=== PATIENT | male | born 1970 | race African-American/Black ===

== ENCOUNTER → 2016-10-08 | Outpatient (CLI) | payer BC ==
[2016-10-08 15:03] LABS: BASO % 0.4 %; BASO ABS # 0.03 K/uL (0-0.2); COMPLETE YES; EOS % 1.5 %; HEMATOCRIT 42.2 % (42-52); IG% 0.3 %; LYMPH % 31.8 %; LYMPH ABS # 2.54 K/uL (1.2-3.4); MEAN CELL VOLUME 90.2 fL (80-100); MEAN CORPUSCULAR HEMOGLOBIN 30.8 pg (25-34); MEAN CORPUSCULAR HGB CONC 34.1 g/dl (32-36); MEAN PLATELET VOLUME 10.4 fL (7.4-10.4); MONO % 8.3 %; NEUT % 57.7 %; PLATELET COUNT 277 K/uL (130-400); RED BLOOD COUNT 4.68 M/uL (4.7-6.1); WHITE BLOOD COUNT 7.98 K/uL (4.8-10.8)
--- NOTE | 2016-10-08 15:08 | DIAGNOSTIC IMAGING REPORT ---
RIGHT HIP UNILATERAL 2 VIEWS CLINICAL HISTORY: Right hip pain. COMPARISON: None FINDINGS: Alignment of the right hip is anatomic. There is no fracture or suspicious lesion. There is mild joint space narrowing and osteophytosis of the right hip. There is no fracture or osseous lesion. Pelvic calcifications reflect phleboliths. There is no radiographic evidence of avascular necrosis. IMPRESSION: 1. Mild osteoarthrosis of the right hip. 2. No acute fracture. Electronically signed by: Giuliano Daniels M.D. 10/08/2016 3:07 PM Dictated Date/Time: 10/08/2016 2:49 PM
[2016-10-08 15:51] LABS: ALT/SGPT 36 U/L (12-78); AST/SGOT 22 U/L (15-37); BLOOD UREA NITROGEN 6 mg/dl (7-18); BUN/CREATININE RATIO 4.8 (10-20); CALCIUM 9.1 mg/dl (8.5-10.1); CARBON DIOXIDE 29 mmol/L (21-32); CHLORIDE 105 mmol/L (98-107); CHOLESTEROL 224 mg/dl (0-200); GLUCOSE 85 mg/dl (70-99); POTASSIUM 3.8 mmol/L (3.5-5.1); SODIUM 142 mmol/L (136-145); TRIGLYCERIDES 131 mg/dl (0-150); VERY LOW DENSITY LIPOPROT CALC 26 mg/dl
[2016-10-08 15:54] LABS: ALB/GLOB RATIO 0.8 (0.9-2); ALKALINE PHOSPHATASE 65 U/L (45-117); CHOLESTEROL/HDL RATIO 6.2; HDL CHOLESTEROL 36 mg/dl
[2016-10-09 08:25] LABS: ESTIMATED AVERAGE GLUCOSE 131 mg/dl; HA1C FLAG Normal (Normal)
== END | disposition home or self-care (01) ==
LOC: C.RAD 14:05
PROVIDERS: ATTEND Internal Medicine
DX: E78.5 Hyperlipidemia, unspecified (principal); E66.01 Morbid (severe) obesity due to excess calories; M16.11 Unilateral primary osteoarthritis, right hip

== ENCOUNTER → 2017-03-30 | Outpatient (CLI) | payer BC ==
[2017-03-30 17:30] LABS: HEMATOCRIT 42.4 % (42-52); HEMOGLOBIN 14.6 g/dL (14.0-18.0); MEAN CORPUSCULAR HEMOGLOBIN 31.3 pg (25-34); MEAN CORPUSCULAR HGB CONC 34.4 g/dl (32-36); MEAN PLATELET VOLUME 10.7 fL (7.4-10.4); PLATELET COUNT 284 K/uL (130-400); RED CELL DISTRIBUTION WIDTH CV 13.4 % (11.5-14.5); WHITE BLOOD COUNT 8.72 K/uL (4.8-10.8)
[2017-03-30 17:45] LABS: BLOOD UREA NITROGEN 10 mg/dl (7-18); CALCIUM 9.5 mg/dl (8.5-10.1); CARBON DIOXIDE 29 mmol/L (21-32); CREATININE 1.13 mg/dl (0.60-1.40); GLUCOSE 81 mg/dl (70-99); SODIUM 138 mmol/L (136-145)
== END | disposition home or self-care (01) ==
LOC: C.CPL 16:11
PROVIDERS: ATTEND Physician Assistant
DX: Z01.810 Encounter for preprocedural cardiovascular examination (principal); Z01.812 Encounter for preprocedural laboratory examination; S43.431A Superior glenoid labrum lesion of right shoulder, initial encounter; X58.XXXA Exposure to other specified factors, initial encounter

== ENCOUNTER → 2017-04-01 | Outpatient (CLI) | payer BC ==
[~2017-04-01] MED LIST: PERFLUTREN LIPID MICROSPHERE (DEFINITY) IV ONE
--- NOTE | 2017-04-01 11:13 | EXERCISE STRESS ECHO ---
*NOTICE TO RECEIVING LIBERTARIAN AGENCY This information is strictly Confidential and protected under [place] law. [place] law prohibits you from making any further disclosure of this information unless further disclosure is expressly permitted by the written consent of the person to whom it pertains or is authorized by law. A general authorization for the release of medical or other information is not sufficient for this purpose. Hospital accepts no responsibility if the information is made available to any other person, INCLUDING THE PATIENT. Interpretation Summary * Name: SHAYY OWEN SR Study Date: 04/01/2017 08:49 AM BP: 135/90 mmHg * Patient Location: [facility] HR: 57 * : 1970 (M/d/yyyy) Gender: Male Height: 69 in * Age: 47 yrs Ethnicity: AA Weight: 310 lb * Ordering Physician: Evelio Medrano * Referring Physician: Evelio Medrano * Performed By: Sabrina Lan RDCS * * Reason For Study: ABNORMAL EKG, PRE OP * BSA: 2.5 m2 * -- Conclusions -- * There is mild concentric left ventricular hypertrophy. * Left ventricular systolic function is normal. * Normal exercise echocardiogram without evidence of inducible ischemia Procedure Details * ECHOEX, CPT #03366 * A contrast injection of Definity was performed to improve assessment of LV function. * Contrast was injected into an intravenous site in the right arm. * One vial of Definity ultrasound contrast was diluted in normal saline to a total volume of 10 ml. A total of '2' ml of solution was administered during imaging. * Lot # [id number] of Definity utilized for procedure. * Expiration date APR 02. * The attending nurse who injected the contrast agent was VANIA COTTRELL RN. Left Ventricular Findings with Stress * Normal exercise echocardiogram without evidence of inducible ischemia Left Ventricle * The left ventricle is normal in size. * There is mild concentric left ventricular hypertrophy. * Ejection Fraction = 60-65%. * Left ventricular systolic function is normal. * The left ventricular wall motion is normal at rest. Right Ventricle * The right ventricle is grossly normal size. * The right ventricular systolic function is normal as assessed by tricuspid annular plane systolic excursion (TAPSE) (normal >1.5 cm). Atria * The left atrial size is normal. * Right atrial size is normal. Mitral Valve * The mitral valve is grossly normal. * Significant mitral regurgitation is absent. Tricuspid Valve * The tricuspid valve anatomy is normal. * Significant tricuspid regurgitation is absent. Aortic Valve * The aortic valve is trileaflet. * The aortic valve is normal in structure and function. * No hemodynamically significant valvular aortic stenosis. * There is no significant aortic regurgitation. Great Vessels * The aortic root is normal size. Pericardium * There is no pericardial effusion. Stress Parameters * Normal baseline electrocardiogram. * No arrhythmia were noted with stress. * The stress ECG response was normal * Rest heart rate was '57' BPM. * Rest blood pressure was '135/90' * Maximum heart rate achieved was 166 bpm. * Maximum heart rate was 96 % of maximum age-predicted heart rate. * Maximum blood pressure was '190/96' * Total exercise time was '7:00' * Maximum exercise MET level achieved was '8.70' METS * Maximum treadmill speed was '3.50' miles per hour. * Maximum treadmill elevation was '14'% grade. * Exercise was terminated due to 'ACHIEVING TARGET HR' Left Ventricular Findings with Stress * Baseline EKG was normal There were no significant ST or T-wave changes during exercise or recovery Baseline echocardiogram was normal There was appropriate augmentation of all segments and no inducible wall motion abnormalities with exercise Baseline blood pressure was normal There is a normal blood pressure response to exercise There were no arrhythmias noted during the test Muñiz treadmill score: 7 (low risk) MMode 2D Measurements and Calculations IVSd 1.5 cm IVSs 1.8 cm LVIDd 3.8 cm LVIDs 2.4 cm LVPWd 1.3 cm LVPWs 1.6 cm IVS/LVPW 1.1 FS 34.8 % EDV(Teich) 60.1 ml ESV(Teich) 21.1 ml EF(Teich) 64.8 % EDV(cubed) 52.8 ml ESV(cubed) 14.6 ml EF(cubed) 72.3 % % IVS thick 21.8 % % LVPW thick 28.3 % LV mass(C)d 181.8 grams LV mass(C)dI 73.0 grams/m\S\2 LV mass(C)s 153.8 grams LV mass(C)sI 61.8 grams/m\S\2 SV(Teich) 39.0 ml SI(Teich) 15.7 ml/m\S\2 SV(cubed) 38.2 ml SI(cubed) 15.3 ml/m\S\2 Ao root diam 3.5 cm Ao root area 9.9 cm\S\2 LA dimension 2.6 cm LA/Ao 0.74 LVAd ap4 35.6 cm\S\2 LVLd ap4 9.1 cm EDV(MOD-sp4) 112.8 ml EDV(sp4-el) 118.7 ml LVAs ap4 20.4 cm\S\2 LVLs ap4 7.5 cm ESV(MOD-sp4) 47.2 ml ESV(sp4-el) 47.0 ml EF(MOD-sp4) 58.2 % EF(sp4-el) 60.4 % LVAd ap2 33.2 cm\S\2 LVLd ap2 9.1 cm EDV(MOD-sp2) 98.9 ml EDV(sp2-el) 102.9 ml LVAs ap2 18.7 cm\S\2 LVLs ap2 7.2 cm ESV(MOD-sp2) 40.3 ml ESV(sp2-el) 40.8 ml EF(MOD-sp2) 59.2 % EF(sp2-el) 60.4 % LVLd %diff 0.33 % EDV(MOD-bp) 106.7 ml LVLs %diff -3.31 % ESV(MOD-bp) 43.1 ml EF(MOD-bp) 59.7 % SV(MOD-sp4) 65.6 ml SI(MOD-sp4) 26.4 ml/m\S\2 SV(MOD-sp2) 58.6 ml SI(MOD-sp2) 23.5 ml/m\S\2 SV(MOD-bp) 63.7 ml SI(MOD-bp) 25.6 ml/m\S\2 SV(sp4-el) 71.7 ml SI(sp4-el) 28.8 ml/m\S\2 SV(sp2-el) 62.2 ml SI(sp2-el) 25.0 ml/m\S\2 Doppler Measurements and Calculations MV E max arabella 57.6 cm/sec MV A max arabella 48.5 cm/sec MV E/A 1.2 MV dec time 0.26 sec Ao V2 max 94.5 cm/sec Ao max PG 3.6 mmHg Ao max PG (full) 1.2 mmHg LV V1 max PG 2.4 mmHg LV V1 max 77.6 cm/sec
== END | disposition home or self-care (01) ==
LOC: C.CPL 08:43
PROVIDERS: ATTEND Internal Medicine
DX: Z01.810 Encounter for preprocedural cardiovascular examination (principal)

== ENCOUNTER → 2017-04-05 | Day surgery (SDC) | payer BC ==
[2017-03-16 15:08] VITALS: BMI 43.0
[2017-04-02 11:17] VITALS: Ht 175.3 cm; Wt 140.9 kg
[~2017-04-05] VITALS: Ht 175.3 cm; Wt 140.9 kg
[~2017-04-05] MED LIST changes: +ATROPINE SULFATE 0.1 MG/ML 5ML SYR IV PRN; +BUPIVACAINE/EPINEPHRINE 0.25% 1:200,000 30 ML VIAL ONE; +CEFAZOLIN 3000MG IV PUSH 15 ML IV SCH; +DEXAMETHASONE SOD INJ 4 MG/ML VIAL ONE; +EpHEDrine SULFATE INJ 50 MG/ML AMP IV PRN; +EpHEDrine SULFATE INJ 50 MG/ML AMP ONE; +EpINEphrine HCL INJ 1 MG/ML 5ML SYRINGE ONE; +FENTANYL CITRATE INJ 50 MCG/1 ML 2 ML VIAL ONE; +FLUMAZENIL 0.1 MG/1 ML 10 ML VIAL IV PRN; +HYDROmorphone INJ 0.5 MG/0.5 ML SYR ONE; +HYDROmorphone INJ 2 MG/ML SYR/VIAL IV PRN; +KETOROLAC TROMETHAMINE 30 MG/ML VIAL IV. PRN; +LABETALOL HCL IV 5 MG/ML 20ML IV PRN; +LACTATED RINGER'S 1000ML 1,000 ML IV SCH; +LIDOCAINE 2% 20 MG/ML 5ML SYR IV ONE; +MIDAZOLAM HCL 1 MG/ML 2ML VIAL ONE; +NALOXONE HCL 0.4 MG/1 ML VIAL/CARP IV PRN; +ONDANSETRON INJ 2 MG/ML 2 ML VIAL IV PRN; +ONDANSETRON INJ 2 MG/ML 2 ML VIAL ONE; +OXYCODONE/ACETAMINOPHEN 5-325 TAB PO PRN; -PERFLUTREN LIPID MICROSPHERE (DEFINITY) IV ONE; +PROPOFOL IV EMULSION 10 MG/ML 20 ML VIAL IV ONE; +ROCURONIUM BROMIDE 10 MG/ML 5 ML VIAL IV ONE; +ROPIVACAINE 0.5% 5 MG/ML 30 ML VIAL ONE; +SODIUM CHLORIDE 0.9% 1000ML 1,000 ML IV SCH; +SODIUM CHLORIDE 0.9% INJ 10 ML VIAL ONE
--- NOTE | 2017-04-05 07:01 | History & Physical Bridge - SC ---
H&P Re-Evaluation Bridge Note: I have examined the patient, reviewed the History & Physical and in the interval since the performance of the History & Physical I have noted the following changes of clinical significance: No changes noted
--- NOTE | 2017-04-05 10:14 | [facility] Post Operative Brief Note ---
Immediate Operative Summary Operative Date Apr 05, 2017. Pre-Operative Diagnosis Right Shoulder Rotator Cuff Tear, subacromial spur, loose body Post-Operative Diagnosis Same Procedure(s) Performed Right Shoulder Arthroscopic Rotator Cuff Repair, Subacromial Decompression, Debridement, Loose Body Removal Surgeon Dr. Cordoba Architect Manager Surgeon(s) Lola Duvall PA-C Estimated Blood Loss 5 mL Findings Consistent with Post-Op Diagnosis Fluids (cc crystalloids) 1600 Specimens None Drains None Anesthesia Type General Regional Complication(s) none Disposition Disposition: Recovery Room / PACU
--- NOTE | 2017-04-05 10:33 | [facility] Operative Report ---
Operative Report Operative Date Apr 05, 2017. Pre-Operative Diagnosis Right Shoulder Rotator Cuff Tear, subacromial spur, loose body Post-Operative Diagnosis Same Procedure(s) Performed Right Shoulder Arthroscopic Rotator Cuff Repair, Subacromial Decompression, Debridement, Loose Body Removal Surgeon Dr. Cordoba Medical Insurance Claims Specialist Surgeon(s) Lola Duvall PA-C Estimated Blood Loss 5 mL Findings none Fluids (cc crystalloids) 1600 Specimens None Complication(s) None Disposition Recovery Room / PACU I attest to the content of the Intraoperative Record and any orders documented therein. Any exceptions are noted below.
--- NOTE | 2017-04-05 10:37 | Discharge Instructions ---
Discharge Instructions Date of Service Apr 05, 2017. Admission Reason for Admission: Right Shoulder Rotator Cuff Tear Discharge Discharge Diagnosis / Problem: Right shoulder rotator cuff tear; loose body; subacromial spur Discharge Goals Goal(s): Decrease discomfort, Improve function, Increase independence Activity Recommendations Activity Limitations: as noted below Lifting Limitations: until after follow-up appointment Exercise/Sports Limitations: until after follow-up appointment May Resume Sexual Activity: when tolerated Shower/Bathe: tomorrow, keep incision dry Driving or Machine Use: No driving until cleared by orthopedic surgeon Weightbearing Status: Right non-weightbearing (No more than coffee cup for next 2 wks) . Instructions / Follow-Up Instructions / Follow-Up Post-operative Instructions Dear Patient and Family/Friends, Before you are discharged from the hospital, it is important to know what to expect when you get home after surgery. To that end, we have created this sheet of discharge instructions which covers many commonly asked questions. Make sure you go through this sheet in its entirety with your nurse before you are discharged. Please note that we will go over the specifics of your surgery and recovery when you return for your first post-operative visit. Sincerely, Dr. Cordoba Pain Expect to be in a fair amount of pain after surgery. Remember, our goal is not to eliminate your pain, but to make it tolerable. It is a good idea to stay ahead of your pain by taking the medications you were prescribed once you get home. Typically, the pain starts improving 3-7 days after surgery. You should start weaning off the narcotic pain medication (oxycodone, hydrocodone, hydromorphone, morphine) as soon as your pain improves. Please call our office if your pain is not adequately controlled. Ice Ice your operative site at least 5 times a day for 15-30 minutes at a time. Make sure you have a thin cloth between the ice or cooling unit and your skin to prevent manley bite. This is especially important if you received a nerve block. Continue icing your operative site for the first 5-7 days after surgery , then as needed. Diet/Nausea/Vomiting Start by drinking clear liquids and eating crackers. If you can tolerate this, then you may resume your normal diet. If you feel nauseated or vomit, take Zofran/ondansetron (if prescribed). Please call our office if you have intractable nausea or vomiting, or, if after hours, you may go to the Emergency Room for help. Constipation Constipation is a common side effect of narcotic pain medication. If you have not had a bowel movement within 2 days after surgery, we recommend purchasing an over the counter laxative such as Milk of Magnesia, Dulcolax, or Miralax from a local pharmacy, and taking it as instructed. Call our clinic if any questions. Slings and Braces If you were placed in a sling or brace, it must be worn at all times, including sleep. You may remove your sling or brace for physical therapy, home exercises , and showering. The length of time you will be in your brace and range of motion restrictions depends on what surgery you had; these details will be reviewed at your first post-operative appointment. Nerve block The anesthesia team sometimes places a nerve block to help with post-operative pain control. This results in significant numbness and inability to move the extremity. The nerve block usually wears off in 8-12 hours, but sometimes can last up to 24 hours. Please call our office if you are still unable to move your extremity after 24 hours, unless you received a pain pump to take home. Nerve blocks typically wear off quickly, so start taking pain medication as soon as you start feeling soreness near your surgical site. Weight bearing and Range of Motion. Do not bear any weight through your operative extremity immediately after surgery. If you had upper extremity surgery, do not lift anything with that arm. If you are in a knee brace, keep it locked in place until your follow-up. We will discuss your weight bearing, range of motion, and lifting restrictions in detail at your first post-operative appointment. Continuous Passive Motion (CPM) Machine If you were prescribed a CPM machine, it will start after your first post- operative appointment, at which time we will give you instructions on the range of motion settings and duration of treatment Physical therapy You will be given a prescription for physical therapy or occupational therapy at your first post-operative appointment. Typically, patients start therapy within 1 week of surgery Wound care and showering We will inspect your wound at your first post-operative visit, and may do a dressing change at that time. Most patients will be in a water-proof dressing that is removed 14 days after surgery. It is normal to see some dried blood on the dressing. Do not remove your dressing, paper strips or sutures yourself unless you are given permission. Showering is allowed the day after surgery. Do not scrub or remove any dressings. The wound should not be submerged underwater (i.e. in a bathtub or pool) until 4 weeks after surgery DYANA stockings If you were given white stockings, these are to be worn at all times except to shower (on both legs) for the first 2 weeks after surgery. Driving You may not drive while taking narcotic pain medication or while in a cast, splint, sling or brace. You, the patient, need to make the final determination about when you are safe to drive, however, the earliest you may consider driving after surgery is below: Hand/Wrist/Elbow Surgery: 3 days Shoulder Surgery: 2 weeks Hip,/Knee/Ankle Surgery: 4 weeks Fracture repair: 6 weeks Return to Work Your return to work depends on what surgery was done and what type of work you do. Please bring any paperwork your employer needs completed to your first post -operative visit. Also, bring a description of your job duties, as this helps us to understand what risks you may face at work. Travel Avoid long distance travel (greater than 1 hour) in airplanes and cars for the first 6 weeks after surgery. If you must travel, you need to have a Doppler ultrasound done before you travel to rule out a blood clot in your legs. Follow-up You should have a follow-up appointment already scheduled 1-2 days after surgery. If not, please contact our office to make this appointment before you leave the hospital. When to call the office It is normal to have swelling and bruising in the limb that was operated on. This will improve with time. It is also normal to have fevers for the first 2 days after surgery. Reasons you should call your doctor include: Uncontrolled pain; Nausea, vomiting, or constipation that does not improve with medication; Fevers over 101.5, chills, sweats; Drainage or bleeding from the wound; Foul odor; Spreading areas of redness; Any other concerns Current Hospital Diet Patient's current hospital diet: Discharge Diet Recommended Diet: Regular Diet Procedures Procedures Performed: Right Shoulder Arthroscopic Rotator Cuff Repair, Subacromial Decompression, Debridement, Loose Body Removal Pending Studies Studies pending at discharge: no Medical Emergencies . Who to Call and When: Medical Emergencies: If at any time you feel your situation is an emergency, please call 911 immediately. . Non-Emergent Contact Non-Emergency issues call your: Primary Care Provider Call Non-Emergent contact if: you have a fever, temperature is above 101.5, your pain is not controlled, your pain is worsening, wound has increased drainage, you have any medication questions . "Provider Documentation" section prepared by Trevor Duvall. . VTE Core Measure Inpt VTE Proph given/why not?: Other Anticoagulation (Aspirin EC 81 mg), T.E.DJose E Landeros [place] Drug Monitoring Program Search Results: patient reviewed within database, no issues identified, see additional documentation
[2017-04-05] MEDS: FENTANYL CITRATE INJ 50 MCG/1 ML 2 ML VIAL IV PRN ×4 (10:52→11:38)
--- NOTE | 2017-04-05 11:04 | OPERATIVE REPORT ---
DATE OF OPERATION: 04/05/2017 PREOPERATIVE DIAGNOSIS: Right shoulder rotator cuff tear, subacromial spur, and loose body. POSTOPERATIVE DIAGNOSIS: Same. PROCEDURE: 1. Right shoulder arthroscopy, arthroscopic Rotator cuff repair. 2. Right shoulder loose body removal. 3. Right shoulder subacromial decompression. SURGEON: Efren Cordoba MD. SECURITY SYSTEM SALES CONSULTANT: Lola Duvall. IV FLUIDS: 1200 mL crystalloid. ESTIMATED BLOOD LOSS: 5 mL. URINE OUTPUT: Not recorded. SPECIMENS: None. COMPLICATIONS: None. IMPLANTS: One Arthrex self-punching SwiveLock anchor. INDICATIONS: Mr. Morejon is a 47-year-old gentleman who has had pain in his right shoulder that has been refractory to a short course of conservative management. He has MRI findings consistent with an acute rotator cuff tear. His physical exam is consistent with this with pain with empty can testing and difficulty with overhead activities. I had a long discussion with him about the risks and benefits of surgery, alternatives to surgery and expected outcomes. After reviewing all these, he elected to proceed with surgery. All questions were answered. Informed consent was signed. OPERATIVE FINDINGS: 1. The subscapularis was within normal limits. 2. The biceps tendon was normal. 3. The supraspinatus showed a high grade partial thickness tear. 4. The infraspinatus was intact. 5. The axillary pouch showed no loose bodies. 6. The labrum showed degenerative fraying of the posterior inferior labrum. 7. The articular cartilage of the glenoid showed some early grade 3 chondral wear involving approximately 40% of the surface. 8. The articular cartilage of the humeral head was intact, although he was starting to form a small inferior humeral head osteophyte. Once in the subacromial space, a large loose body was encountered as well as a subacromial spur. The cuff tear was bursal sided in nature and involved 90% thickness of the tendon. The loose body was removed. Degenerative tear of the labrum was debrided. The subacromial spur was resected and the rotator cuff was repaired using an inverted mattress suture configuration. DESCRIPTION OF THE OPERATION: The patient was identified in the preoperative holding area where his surgical site was marked. He was given an interscalene block by anesthesia and brought back to the main operating room where he was placed on the operating room table and general anesthesia was administered. He was carefully moved into lateral decubitus position. Axillary roll was placed. All bony prominences were padded. Perioperative antibiotics were administered. He was prepped and draped in the normal sterile fashion. Prior to incision, a multidisciplinary timeout was called. All in the room were in agreement. I began by placing the arm in 10 pounds of longitudinal traction with the arm at 45 degrees of abduction and 30 degrees of forward elevation. We then made a posterior viewing portal. Diagnostic arthroscopy was undertaken revealing the above findings. Once a diagnostic arthroscopy was complete, the anterior portal was created. The shaver was introduced and was used to debride the posterior inferior labral tearing back to a stable margin. The biceps was extensively probed and was found to be normal and so I elected not to perform a biceps tenotomy. The camera was then moved into the subacromial space. Intense bursitis was encountered. This was removed with the shaver. Once the bursa had been removed a large loose body was noted in the subdeltoid space. This had been seen on his preoperative MRI. The internal fascia of the deltoid was enlarged to allow this loose body to be removed. The grasper was introduced and the loose body was removed without incident. Next, the undersurface of the acromion was exposed with electrocautery. He had a large anterior and lateral spur. A barrel bur was used to resect the subacromial spur converting it from a type 2 acromion to a type 1 acromion. We then explored his rotator cuff tear. The 10% of remaining cuff fibers that were intact were of extremely poor quality. I therefore elected to complete the tear. This was done with the shaver. I then prepared the footprint by removing soft tissue down to a healthy bleeding bony surface. We then opened up a FiberTape which was passed in an inverted mattress configuration through the cuff tear. These sutures were then passed through a self-punching SwiveLock anchor. The SwiveLock anchor was placed down just lateral to the cuff footprint. It was then tamped down into place. Excellent reapproximation of the cuff tear on to the footprint was noted. At this point, our final arthroscopic images were obtained. The portals were closed with inverted 3-0 Monocryl sutures. Steri-Strips were applied followed by sterile dressings. He was placed into a sling with an abduction pillow. He was rolled supine, extubated and transferred to the recovery room in stable condition. POSTOPERATIVE COURSE: The patient will be discharged home from the recovery room. He will be on aspirin for DVT prophylaxis. He will follow the small rotator cuff repair protocol. He will be in a sling for 4 weeks. I attest to the content of the Intraoperative Record and any orders documented therein. Any exceptions are noted below. SNAJAY
[2017-04-05 12:08] VITALS: TEMP 36.4
--- NOTE | 2017-04-05 12:40 | Anesthesia Progress Nt - [facility] ---
Anesthesia Post Op Note Date & Time Apr 05, 2017 at 12:40 Vital Signs Pain Intensity: 2 Vital Signs Past 12 Hours Date Time Temp Pulse Resp B/P (MAP) Pulse Ox O2 Delivery O2 Flow Rate FiO2 04/05/17 12:08 94 Nasal Cannula 3 04/05/17 12:08 36.4 72 20 121/72 (88) 86 Room Air 04/05/17 12:00 151/92 04/05/17 11:58 96 26 04/05/17 11:58 96 26 95 04/05/17 11:53 87 19 93 04/05/17 11:53 87 19 04/05/17 11:51 145/97 04/05/17 11:50 36.6 74 20 145/97 99 Room Air 04/05/17 11:48 79 19 04/05/17 11:48 79 19 100 04/05/17 11:46 129/95 04/05/17 11:43 76 14 98 04/05/17 11:43 77 14 04/05/17 11:41 138/98 04/05/17 11:38 81 15 98 04/05/17 11:38 82 15 04/05/17 11:36 144/97 04/05/17 11:33 77 17 04/05/17 11:33 77 17 99 04/05/17 11:31 129/95 04/05/17 11:28 84 13 99 04/05/17 11:28 82 13 04/05/17 11:26 117/92 04/05/17 11:23 85 17 99 04/05/17 11:23 83 17 04/05/17 11:22 82 17 99 04/05/17 11:22 82 17 04/05/17 11:21 132/93 04/05/17 11:17 82 18 04/05/17 11:17 83 18 100 04/05/17 11:16 132/95 04/05/17 11:12 77 13 04/05/17 11:12 80 13 100 04/05/17 11:11 142/87 04/05/17 11:07 79 13 04/05/17 11:07 80 13 100 04/05/17 11:06 135/83 04/05/17 11:02 77 13 100 04/05/17 11:02 78 13 04/05/17 11:01 133/88 1/22/18 10:57 85 22 100 18 10:57 84 22 18 10:56 135/87 18 10:52 80 17 100 18 10:52 81 17 18 10:51 118/101 18 10:47 88 21 100 18 10:47 87 21 04/05/17 10:46 155/87 04/05/17 10:42 81 15 100 18 10:42 82 15 18 10:41 149/90 04/05/17 10:37 77 16 04/05/17 10:37 76 16 100 04/05/17 10:36 148/102 04/05/17 10:33 183/101 04/05/17 10:32 86 17 161/112 99 04/05/17 10:32 84 17 04/05/17 10:31 36.1 79 20 161/112 99 Mask 6 04/05/17 08:37 71 9 99 04/05/17 08:37 71 18 08:36 134/86 04/05/17 08:32 59 0 100 18 08:32 57 18 08:31 124/85 04/05/17 08:30 68 0 100 04/05/17 08:30 67 18 08:26 123/87 18 08:25 72 04/05/17 08:25 72 99 18 08:21 134/86 18 08:20 68 15 99 18 08:20 68 18 08:16 130/89 18 08:15 71 18 08:15 71 35 100 18 08:11 121/89 18 08:10 67 18 08:10 68 7 18 08:06 128/88 18 08:05 64 14 100 18 08:05 64 18 08:01 139/85 18 08:00 71 20 100 18 08:00 72 18 07:56 123/91 18 07:55 69 04/05/17 07:55 69 21 100 04/05/17 07:51 137/102 04/05/17 07:50 62 04/05/17 07:50 68 16 150/92 (111) 100 Diffusion Mask 4 04/05/17 07:50 62 15 100 04/05/17 07:46 133/99 04/05/17 07:45 68 04/05/17 07:45 70 8 100 04/05/17 07:41 140/102 04/05/17 07:40 62 04/05/17 07:40 62 18 96 04/05/17 07:40 60 16 150/92 (111) 100 Diffusion Mask 4 04/05/17 07:38 141/94 04/05/17 07:35 63 04/05/17 07:35 63 0 93 04/05/17 07:30 69 04/05/17 07:30 70 0 99 04/05/17 07:25 62 04/05/17 07:25 62 0 98 04/05/17 06:55 36.4 68 16 150/92 (111) 94 Room Air Notes Mental Status: alert / awake / arousable, participated in evaluation Pt Amnestic to Procedure: Yes Nausea / Vomiting: adequately controlled Pain: adequately controlled Airway Patency, RR, SpO2: stable & adequate BP & HR: stable & adequate Hydration State: stable & adequate Anesthetic Complications: no major complications apparent
[2017-04-05 13:03] VITALS: BP 102/71; PULSE 74; O2SAT 94
== END | disposition home or self-care (01) ==
LOC: X.SURG 06:43
PROVIDERS: ATTEND Orthopaedic Surgery
DX: S46.011A Strain of muscle(s) and tendon(s) of the rotator cuff of right shoulder, initial encounter (principal); X50.9XXA Other and unspecified overexertion or strenuous movements or postures, initial encounter; M24.011 Loose body in right shoulder; M75.91 Shoulder lesion, unspecified, right shoulder; E66.01 Morbid (severe) obesity due to excess calories; Z80.0 Family history of malignant neoplasm of digestive organs; Z83.3 Family history of diabetes mellitus

== ENCOUNTER → 2017-05-18 | Outpatient (CLI) | payer BC ==
--- NOTE | 2017-05-18 08:32 | DIAGNOSTIC IMAGING REPORT ---
R SHOULDER MIN 2 VIEWS CLINICAL HISTORY: Postop shoulder surgery COMPARISON: January 08, 2017 DISCUSSION: A soft tissue anchor is visualized in the humeral head. No acute fractures or dislocations are visualized. There is mild chronic irregularity the inferior scapular glenoid. IMPRESSION: 1. No acute fractures or dislocations 2. Postsurgical change Electronically signed by: Himanshu Suero M.D. 05/18/2017 8:31 AM Dictated Date/Time: 05/18/2017 8:30 AM
== END | disposition home or self-care (01) ==
LOC: C.RDSM 08:00
PROVIDERS: ATTEND Physician Assistant
DX: Z98.890 Other specified postprocedural states (principal)

== ENCOUNTER 2018-05-05 04:48 | Observation (INO) ==
[2018-05-05] MEDS ORDERED: ONDANSETRON INJ 2 MG/ML 2 ML VIAL IV STA (05:03)
[2018-05-05] MEDS ORDERED: DICYCLOMINE HCL 10 MG/ML 2 ML AMP/VIAL IM ONE ×2 (05:03)
--- NOTE | 2018-05-05 05:11 | Emergency Department Note ---
History of Present Illness General Chief complaint: Illness Stated complaint: VOMITING,DIARRHEA,BLACKING OUT,TREMORS History of Present Illness This 48-year-old presents to the ER complaining of nausea, vomiting, diarrhea Location: Abdomen Quality: Crampy Severity: Moderate Duration: Tonight Timing: Started after eating old salmon Context: Symptoms persisted and patient came in Modifying factors: better with nothing; worse with nothing Patient claims numerous episodes of vomiting and diarrhea. No blood or black in it. Patient states he feels quite weak. Patient denies chest pain, dyspnea , fevers, syncope, flulike illness. No sick contacts. Home Medications Home Medications Medication Instructions Recorded Confirmed Type No Known Home Medications 05/05/18 05/05/18 History Allergies Allergy/AdvReac Type Severity Reaction Status Date / Time morphine AdvReac Mild NAUSEA/VOMI Verified 04/05/17 06:55 TING Past Med/Surg History Medical History No acute medical problems Social History Feels Safe at Home: Yes Smoking Status: Never smoker Preferred Language: Armenian Review of Systems A total of 10 systems reviewed and were otherwise negative Physical Exam Vital Signs Vital Signs - 24 hr 05/05/18 04:57 05/05/18 05:24 Temperature 37.3 C Temperature Source Oral Sepsis Recent Fever Within 48 Hours No Sepsis Action Taken by Nursing No Action Required Pulse Rate 94 H 84 Pulse Rhythm Regular Pulse Strength Normal Respiratory Rate 18 18 Respiratory Effort / Characteristics Non-Labored Spontaneous Respiratory Depth Normal Respiratory Pattern Regular Blood Pressure 134/81 Blood Pressure Mean 98 Pulse Oximetry 95 97 Oxygen Delivery Method Room Air Room Air VITALS: Vitals are noted on the nurse's note and reviewed by myself. Vital signs reviewed. GENERAL: Male who appears dehydrated, in no acute distress, nondiaphoretic, well -developed well-nourished. SKIN: The skin was without rashes, erythema, edema, or bruising. There is no tenting of the skin. Capillary reflex less than 2 seconds. HEAD: Normocephalic atraumatic. EARS: External auditory canals clear, tympanic membranes pearly donaldson without erythema or effusion bilaterally. EYES: Pupils equal round and reactive to light and accommodation. Conjunctivae without injection, sclerae without icterus. Extraocular movements intact. NOSE: Patent, turbinates without inflammation or discharge. MOUTH: Mucous membranes mildly dry. Pharynx without erythema or exudate. Uvula midline. Airway patent. Tongue does not deviate. NECK: Supple without nuchal rigidity. No lymphadenopathy. No thyromegaly. Cervical spine is nontender. No JVD. HEART: Regular rate and rhythm LUNGS: Clear to auscultation bilaterally without wheezes, rales or rhonchi. No retractions or accessory muscle use. ABDOMEN: Positive bowel sounds x 4. Normal tympanic percussion. Soft, nontender, without masses or organomegaly. Alvarez sign negative. No guarding or rebound tenderness. No CVA tenderness MUSCULOSKELETAL: No muscle atrophy, erythema, or edema noted. NEURO: Patient was alert and oriented to person place and time. Normal sensation to light and sharp touch. No focal neurological deficits. Course Administered Medications Discontinued Medications Dicyclomine HCl (Bentyl) Confirm Administered Dose 20 mg IM .[facility] Stop: 05/05/18 05:04 Last Admin: 05/05/18 05:09 Dose: Not Given Dicyclomine HCl (Bentyl) 20 mg IM NOW ONE Stop: 05/05/18 05:04 Last Admin: 05/05/18 05:09 Dose: 20 mg Sodium Chloride (Nss 1000ml) 1,000 mls @ 999 mls/hr IV .Q1H1M JULIAN Stop: 05/05/18 06:15 Last Infusion: 05/05/18 05:58 Dose: 0 mls/hr Admin: 05/05/18 05:24 Dose: 999 mls/hr Ondansetron HCl (Zofran) 4 mg IV NOW STA Stop: 05/05/18 05:04 Last Admin: 05/05/18 05:24 Dose: 4 mg Medical Decision Making Medical Records Attestation: I reviewed the patient's medical records. Home Medications Current Medication List: was personally reviewed by me Laboratory Data Attestation: I reviewed the patient's lab results. Result diagrams: 05/05/18 05:17 05/05/18 05:17 Lab Results 05/05/18 05/05/18 Range/Units 05:17 05:17 WBC 14.12 H (4.8-10.8) K/uL RBC 5.20 (4.7-6.1) M/uL Hgb 16.2 (14.0-18.0) g/dL Hct 47.5 (42-52) % MCV 91.3 (80-100) fL MCH 31.2 (25-34) pg MCHC 34.1 (32-36) g/dL RDW Std Deviation 45.9 (36.4-46.3) fL RDW Coeff of Ashley 13.6 (11.5-14.5) % Plt Count 264 (130-400) K/uL MPV 10.8 H (7.4-10.4) fL Immature Gran % (Auto) 0.3 % Neut % (Auto) 91.8 % Lymph % (Auto) 3.8 % [place] % (Auto) 3.8 % Eos % (Auto) 0.2 % Baso % (Auto) 0.1 % Immature Gran # (Auto) 0.04 H (0.00-0.02) K/uL Neut # (Auto) 12.96 H (1.4-6.5) K/uL Lymph # (Auto) 0.54 L (1.2-3.4) K/uL [place] # (Auto) 0.54 (0.11-0.59) K/uL Eos # (Auto) 0.03 (0-0.5) K/uL Baso # (Auto) 0.01 (0-0.2) K/uL Sodium 135 L (136-145) mmol/L Potassium 4.4 (3.5-5.1) mmol/L Chloride 104 (98-107) mmol/L Carbon Dioxide 27 (21-32) mmol/L Anion Gap 4.0 (3-11) BUN 16 (7-18) mg/dl Creatinine 2.01 H (0.6-1.4) mg/dl Est Cr Clr Drug Dosing 61.2 ml/min Est GFR ( Amer) 43.8 Est GFR (Non-Af Amer) 37.8 BUN/Creatinine Ratio 8.0 L (10-20) Glucose 165 H (70-99) mg/dl Calcium 9.3 (8.5-10.1) mg/dl Magnesium 1.7 L (1.8-2.4) mg/dl Total Bilirubin 0.8 (0.2-1) mg/dl AST 23 (15-37) U/L ALT 37 (12-78) U/L Alkaline Phosphatase 77 (45-117) U/L Total Protein 9.3 H (6.4-8.2) gm/dl Albumin 4.2 (3.4-5.0) gm/dl Globulin 5.1 H (2.5-4.0) gm/dl Albumin/Globulin Ratio 0.8 L (0.9-2) MDM Narrative Prior records/ancillary studies reviewed. Triage Nursing notes reviewed. Additional history obtained from the family. The patient's history was concerning for nausea, vomiting, diarrhea, and abdominal pain. Differential diagnosis: Etiologies such as gastroenteritis, food borne illness, infections, appendicitis, diverticulitis, inflammatory bowel disease, obstruction, GI bleed , biliary pathology, as well as others were entertained. Physical examination findings: As above. Abdominal examination revealed nontender. Vital signs reviewed and revealed reviewed. ER treatment provided: IV hydration 1 L NSS. Bentyl IM, Zofran IV On reassessment the patient felt better. Patient was tolerating p.o. intake. Diagnostics interpretation by me: The labs revealed leukocytosis, elevated creatinine, twice from baseline, hyperglycemia without DKA Consultation: A consultation was placed with the hospitalist, Dr. Patterson. The case was discussed and diagnostics were reviewed. The patient was evaluated in the ER for further treatment. This appears to be consistent with vomiting and diarrhea with acute kidney injury and dehydration. Patient will be evaluated by medicine for possible admission. His kidney function has doubled. He is agreeable to treatment plan. By the evaluation outlined above emergent etiologies such as appendicitis , diverticulitis, obstruction, cardiac sources, mesenteric ischemia, aortic pathology, inflammatory bowel disease, renal colic, PUD, biliary pathology, UTI , as well as others were deemed relatively unlikely. The pt informed about the findings as listed above. All questions were answered and pleased with the treatment. The chart was completed utilizing setObject Speech voice recognition software. Grammatical errors, random word insertions, pronoun errors, and incomplete sentences are an occassional consequence of this system due to software limitations, ambient noise, and hardware issues. Any formal questions or concerns about the content, text, or information contained within the body of this dictation should be directly addressed to the physician assistant inventory manager for clarification. Impression & Plan MARITZA (acute kidney injury), Acute dehydration, Abdominal pain, vomiting, and diarrhea Discharge Plan Visit Data Chief Complaint: Illness Stated Complaint: VOMITING,DIARRHEA,BLACKING OUT,TREMORS ED Provider: Светлана Garcia ED Midlevel Provider: Viktoriya Walsh Discharge Problem: MARITZA (acute kidney injury), Acute dehydration, Abdominal pain, vomiting, and diarrhea Patient Disposition: Being Evaluated by Hospitalist Condition: Good Discharge Instructions Activity Restrictions/Additional Instructions: Bently tablets 10mg: Take one every six hours as needed for abdominal cramping and bloating. Zofran(odansetron) tablets 4mg: Take one and allow it to dissolve in your mouth every four to six hours as needed for nausea or vomiting. Rest and drink plenty of fluids as tolerated. Slow sips of water or sports drinks are recommended instead of large amounts all at once. Continue current medications. Inyo diet until symptoms resolve. You should avoid full, heavy meals for about 24 hrs from the time your symptoms resolved. Return to the ER for persistent vomiting, fevers, abdominal pain, chest pains, difficulty breathing, black or bloody stools, worsening of your condition, or as needed. Follow up with your primary physician in 2-3 days for a recheck of your current condition. Forms Stand Alone Forms: [employer] [facility] Prescriptions Prescriptions: No Action No Known Home Medications RF: 0 Referrals Referrals: Evelio Villeda MD [Primary Care Provider] -
[2018-05-05] MEDS ORDERED: SODIUM CHLORIDE 0.9% 1000ML 1,000 ML IV SCH ×2 (05:15→16:45)
[2018-05-05 05:32] LABS: Basophils # (auto) 0.01 K/uL (0-0.2); Basophils % (auto) 0.1 %; Eosinophils # (auto) 0.03 K/uL (0-0.5); Eosinophils % (auto) 0.2 %; Hematocrit (blood only) 47.5 % (42-52); Hemoglobin 16.2 g/dL (14.0-18.0); Immature Granulocytes # (auto) 0.04 K/uL (0.00-0.02); Immature Granulocytes % (auto) 0.3 %; Lymphocytes # (auto) 0.54 K/uL (1.2-3.4); Lymphocytes % (auto) 3.8 %; Mean Corpuscular Hgb Conc 34.1 g/dL (32-36); Mean Corpuscular Volume 91.3 fL (80-100); Mean Platelet Volume 10.8 fL (7.4-10.4); Monocytes # (auto) 0.54 K/uL (0.11-0.59); Monocytes % (auto) 3.8 %; Neutrophils # (auto) 12.96 K/uL (1.4-6.5); Neutrophils % (auto) 91.8 %; Platelet Count 264 K/uL (130-400); RDW Coefficient of Variation 13.6 % (11.5-14.5); RDW Standard Deviation 45.9 fL (36.4-46.3); White Blood Count 14.12 K/uL (4.8-10.8)
[2018-05-05 05:49] LABS: Albumin Level 4.2 gm/dl (3.4-5.0); Calcium 9.3 mg/dl (8.5-10.1); Creatinine Clr Calc Pharmacy 61.2 ml/min; Est GFR (African American) 43.8; Est GFR (Non-African American) 37.8; Magnesium 1.7 mg/dl (1.8-2.4); Potassium 4.4 mmol/L (3.5-5.1)
[2018-05-05 05:52] LABS: Albumin Globulin Ratio 0.8 (0.9-2); Bilirubin,Total 0.8 mg/dl (0.2-1); Globulin 5.1 gm/dl (2.5-4.0); Total Protein 9.3 gm/dl (6.4-8.2)
--- NOTE | 2018-05-05 06:43 | History & Physical Report ---
Date of Service May 05, 2018 Assessment & Plan (1) Abdominal pain, vomiting, and diarrhea: Intractable abdominal pain, nausea, vomiting, diarrhea/presumptive toxin induced food poisoning-- Observation to medical floor. NPO Patient's received 1 L normal saline in the ED. We will give another 2 L normal saline bolus now. Zofran 4 mg IV every 6 hours as needed. Compazine 10 mg IV every 6 hours as needed. Pantoprazole 40 mg IV daily. Acetaminophen thousand milligrams IV every 8 hours as needed mild pain or temperature. Send stool for culture and WBCs. Present on Admission?: Yes (2) Food poisoning: As above. Patient ate previously cooked salmon cakes from a few days previously that were likely containing toxin. Present on Admission?: Yes (3) MARITZA (acute kidney injury): Acute kidney injury secondary to acute dehydration associated with fluid loss from vomiting and diarrhea. Creatinine 2.01 upon admission, with most recent few years ago at 1.13. Repeat laboratories in the a.m. after rehydration. Present on Admission?: Yes (4) Acute dehydration: As above. Present on Admission?: Yes History of Present Illness Chief Complaint: The patient presents to the emergency department with symptoms of nausea, vomiting, diarrhea and syncopal episodes. Primary Care Provider: Evelio Villeda MD The patient is a 48-year-old male who reports that yesterday afternoon at 1:00 he returned from work, and had some previously cooked salmon cakes from his refrigerator. He then went to sleep for a while, and felt his stomach little unsettled. He then ate a hamburger around 5:00 that night. Around 9:00 that evening, the patient started having nausea and vomiting, and then at 1030 he started having diarrhea. While on the commode, he passed out completely at least once, witnessed by his significant other, and then had a few other episodes of near syncope. At this point he primarily feels very fatigued and cold. He has not had any recent travels or sick exposures. Allergies Allergy/AdvReac Type Severity Reaction Status Date / Time morphine AdvReac Mild NAUSEA/VOMI Verified 04/05/17 06:55 TING Home Medications Home Medications Medication Instructions Recorded Confirmed Type No Known Home Medications 05/05/18 05/05/18 History Past Med/Surg History Medical History No acute medical problems Social History Feels Safe at Home: Yes Smoking Status: Never smoker Preferred Language: Azerbaijani Review of Systems The patient denies chest pain, palpitations, shortness of breath, dyspnea on exertion, cough, lower extremity swelling, sore throat, blood in urine or stool, dysuria, urinary frequency or urgency, memory loss, rash, abnormal bruising or bleeding, imbalance, focal weakness, numbness or tingling in arms or legs, back or neck pain, or night sweats. The review of systems is otherwise negative other than for that already noted above, and at least 10 systems have been reviewed. Physical Exam 2 Vital Signs (Past 24 Hours): Last Vital Signs Temp 37.3 C 05/05/18 04:57 Pulse 84 05/05/18 05:24 Resp 18 05/05/18 05:24 BP 134/81 05/05/18 04:57 Pulse Ox 97 05/05/18 05:24 Physical Exam: The patient is awake, alert and oriented �3, looks fatigued, normocephalic and atraumatic, lying in bed and in no acute distress. HEENT--PERRL, EOMI, mucous membranes and oropharynx dry. Neck--supple. No JVD. No bruits. Thyroid normal, trachea midline, no adenopathy. Heart--normal S1 and S2. No murmurs, rubs or gallops. Lungs--clear bilaterally, no respiratory distress, no accessory muscle use. Abdomen--decreased bowel sounds and soft. Nontender. Nondistended. Mildly tympanitic. Obese Extremities--no cyanosis or clubbing. No edema. There are good distal pulses b/ l. Dermatologic--normal skin turgor, normal color, no abnormal lymph nodes, no rash. Neurologic--cranial nerves II through XII grossly intact. Rheumatologic--normal range of motion. Psychiatric--normal affect. Results & Data Laboratory Results Laboratory Results WBC 14.12 K/uL (4.8-10.8) H 05/05/18 05:17 RBC 5.20 M/uL (4.7-6.1) 05/05/18 05:17 Hgb 16.2 g/dL (14.0-18.0) 05/05/18 05:17 Hct 47.5 % (42-52) 05/05/18 05:17 MCV 91.3 fL (80-100) 05/05/18 05:17 MCH 31.2 pg (25-34) 05/05/18 05:17 MCHC 34.1 g/dL (32-36) 05/05/18 05:17 RDW Std Deviation 45.9 fL (36.4-46.3) 05/05/18 05:17 RDW Coeff of Ashley 13.6 % (11.5-14.5) 05/05/18 05:17 Plt Count 264 K/uL (130-400) 05/05/18 05:17 MPV 10.8 fL (7.4-10.4) H 05/05/18 05:17 Immature Gran % (Auto) 0.3 % 05/05/18 05:17 Neut % (Auto) 91.8 % 05/05/18 05:17 Lymph % (Auto) 3.8 % 05/05/18 05:17 [place] % (Auto) 3.8 % 05/05/18 05:17 Eos % (Auto) 0.2 % 05/05/18 05:17 Baso % (Auto) 0.1 % 05/05/18 05:17 Immature Gran # (Auto) 0.04 K/uL (0.00-0.02) H 05/05/18 05:17 Neut # (Auto) 12.96 K/uL (1.4-6.5) H 05/05/18 05:17 Lymph # (Auto) 0.54 K/uL (1.2-3.4) L 05/05/18 05:17 [place] # (Auto) 0.54 K/uL (0.11-0.59) 05/05/18 05:17 Eos # (Auto) 0.03 K/uL (0-0.5) 05/05/18 05:17 Baso # (Auto) 0.01 K/uL (0-0.2) 05/05/18 05:17 Sodium 135 mmol/L (136-145) L 05/05/18 05:17 Potassium 4.4 mmol/L (3.5-5.1) 05/05/18 05:17 Chloride 104 mmol/L (98-107) 05/05/18 05:17 Carbon Dioxide 27 mmol/L (21-32) 05/05/18 05:17 Anion Gap 4.0 (3-11) 05/05/18 05:17 BUN 16 mg/dl (7-18) 05/05/18 05:17 Creatinine 2.01 mg/dl (0.6-1.4) H 05/05/18 05:17 Est Cr Clr Drug Dosing 61.2 ml/min 05/05/18 05:17 Est GFR ( Amer) 43.8 05/05/18 05:17 Est GFR (Non-Af Amer) 37.8 05/05/18 05:17 BUN/Creatinine Ratio 8.0 (10-20) L 05/05/18 05:17 Glucose 165 mg/dl (70-99) H 05/05/18 05:17 Calcium 9.3 mg/dl (8.5-10.1) 05/05/18 05:17 Magnesium 1.7 mg/dl (1.8-2.4) L 05/05/18 05:17 Total Bilirubin 0.8 mg/dl (0.2-1) 05/05/18 05:17 AST 23 U/L (15-37) 05/05/18 05:17 ALT 37 U/L (12-78) 05/05/18 05:17 Alkaline Phosphatase 77 U/L (45-117) 05/05/18 05:17 Total Protein 9.3 gm/dl (6.4-8.2) H 05/05/18 05:17 Albumin 4.2 gm/dl (3.4-5.0) 05/05/18 05:17 Globulin 5.1 gm/dl (2.5-4.0) H 05/05/18 05:17 Albumin/Globulin Ratio 0.8 (0.9-2) L 05/05/18 05:17 Medications Administered Home Medications Medication Instructions Recorded Confirmed No Known Home Medications 05/05/18 05/05/18 Code Status & VTE Plan Code Status Full code VTE Prophylaxis Plan VTE Prophylaxis will be ordered: Yes
[2018-05-05] MEDS ORDERED: ACETAMINOPHEN 1000 MG/100 ML IV IV PRN (08:06)
[2018-05-05] MEDS ORDERED: PROCHLORPERAZINE 10 MG in SYRINGE 8 ML IV PRN (08:06)
[2018-05-05] MEDS ORDERED: ONDANSETRON INJ 2 MG/ML 2 ML VIAL IV PRN (08:06)
[2018-05-05] MEDS: SODIUM CHLORIDE 0.9% 1000ML 1,000 ML IV SCH ×2 (09:52→10:58)
[2018-05-05] MEDS ORDERED: PANTOprazole 40 MG in SYRINGE 0 ML IV SCH (11:00)
[2018-05-05 15:09] VITALS: BP 135/82; PULSE 93; TEMP 99.7; O2SAT 97
--- NOTE | 2018-05-05 16:01 | Discharge Summary ---
Date of Service May 05, 2018 Admission HPI Per Admitting Provider The patient is a 48-year-old male who reports that yesterday afternoon at 1:00 he returned from work, and had some previously cooked salmon cakes from his refrigerator. He then went to sleep for a while, and felt his stomach little unsettled. He then ate a hamburger around 5:00 that night. Around 9:00 that evening, the patient started having nausea and vomiting, and then at 1030 he started having diarrhea. While on the commode, he passed out completely at least once, witnessed by his significant other, and then had a few other episodes of near syncope. At this point he primarily feels very fatigued and cold. He has not had any recent travels or sick exposures. Principal Diagnosis food poisoning Discharge Exam Constitutional WD/WN, vitals as above Eyes PERRL, conjunctivae normal, anicteric sclerae ENMT external ear and nose normal, oropharynx normal Respiratory normal respiratory effort, lungs clear to auscultation Cardiovascular RRR, no murmur, no edema Gastrointestinal (Abdomen) normal bowel sounds, soft, nontender, no hepatosplenomegaly Skin no rashes, warm and dry Psychiatric A+Ox3, euthymic affect Discharge Data Allergies Allergy/AdvReac Type Severity Reaction Status Date / Time morphine AdvReac Mild NAUSEA/VOMI Verified 04/05/17 06:55 TING Consultations 05/05/18 06:04 ED Decision to Admit Stat 05/05/18 08:06 Consult Case Management - Discharge Planning Routine Hospital Course (1) Food poisonin48 y/o M with no significant PMH presented to [facility] with complaints of N/V/ D. Pt states that he had some previously cooked salmon cakes that were a few days old from his refrigerator --> went to sleep for a while, and felt his stomach little unsettled --> ate a hamburger later that night --> later that evening had nausea and vomiting and few hours later started having diarrhea. While on the toilet, pt states that he passed out completely at least once, witnessed by his significant other, and then had a few other episodes of near syncope. Pt denied any recent travels or sick exposures. In ER, labs showed mild MARITZA 2.01. No significant electrolyte abnormalities. Pt was given 1 L NSS and admitted to medical floors. The following is the medical management during pt's stay here. 1) Intractable abdominal pain, N/V/D -Pt's prodrome of symptoms was likely toxin induced food poisoning. Patient received 1 L normal saline in the ED and received another 2 L normal saline bolus on admission. Pt given Zofran 4 mg IV q6prn for nausea and Pantoprazole 40 mg IV. Pt reported 2 diarrhea movements since admission, which was improved along with improvement in nausea and vomiting. Denied any abd pain. Pt was tolerating diet during stay here without issue. Pt will need repeat BMP in next few days, and script given. Pt instructed on safe eating habits for future prevention. Pt given script for zofran at d/c. 2) MARITZA -Pt's acute kidney injury likely secondary to acute dehydration associated with fluid loss from vomiting and diarrhea. Creatinine was 2.01 upon admission and most recent few years ago was at 1.13. Pt will repeat BMP as above in next few days to monitor. DVT prophylaxis was not given considering low risk. At time of d/c, pt had no other acute concerns or complaints. Total Time Total Time Spent Total Time Spent (In Minutes): <30 min Discharge Plan Discharge Items Patient Disposition: Home - Self-Care Reason For Visit: SYNOPE, FOOD POISONING, MARITZA SERIOUS Discharge Diagnosis: food poisoning Condition: Good Discharge Goals: Decrease discomfort and Improve disease control Activity: Per 'Additional Instructions' section Non-emergency contact: Primary Care Provider Call non-emergency contact if: your symptoms worsen and your pain is not controlled Follow-up/Referrals: Evelio Villeda MD [Primary Care Provider] - 05/12/18 3:00 pm (Please, follow up with Dr. Aletha Horner on May 12 at 3:00 pm. *If you need to change this appointment, call the office at [phone].) Diet: Heart Healthy Addtl Provider Instructions: You were admitted for food poisoning and acute kidney injury, which was due to your loss of fluids from vomiting and diarrhea. Please follow the below instructions on d/c: -Please follow up with you PCP with one week of discharge -You will be given script for zofran, which you can take if you have continued nausea -Avoid foods or foods that are a few days old as you can have a repeat of symptoms Prescriptions: New ondansetron HCl [Zofran] 4 mg/5 mL solution 4 mg PO QID PRN (Reason: nausea and vomiting) Qty: 50 RF: 0 No Action No Known Home Medications RF: 0 Stand-Alone Forms: [facility] Discharge Orders: Discharge Order (Routine); Ordered 05/05/18 Ordered By: Julito Rothman Admission Data Admit Date/Time: 05/05/18 06:21 Attending Provider: Quirino Powell Admit Provider: Quirino Powell Primary Care Provider: Evelio Villeda Other Providers: Quirino Powell Service: Medical Other Interventions: Discharge Summary Assessment (RN) Last Done: 05/05/18 18:23 Supervising Physician Co-Signing Physician Notes I personally examined the patient and verified all concepcion points of history and exam, discussed case, and agree with decision making with Dr Rothman. Feeling better, he is only had about 2 episodes of diarrhea since coming up to the floor. He ate reasonably well. He is not having any more nausea or vomiting. Generally he feels better. He feels up to going home. Vitals noted, in general he is awake alert oriented x3 fatigued appearing but pleasant no distress. HEENT normal cephalic atraumatic mucous membranes are moist. Breathing is unlabored. Abdomen is soft nondistended nontender no masses or organomegaly. Skin shows no rashes no pallor or icterus. Food poisoning�probably from the salmon. He is nontoxic, his symptoms are improving, antibiotics are not indicated at this time. He appears to be improving enough to be able to go home, he feels up to going home and would prefer to go home. Will discharge with as needed Zofran, and he would return should he have any worsening. MARITZA�this appears to be due to volume loss from his diarrhea. He has been given 3 L of fluid resuscitation while here, we will ask for a follow-up basic metabolic panel to be done in the next few days to ensure ongoing improvement. He is aware of this. Resident Activity Tracking Resident Involvement: Resident Care Provided Care Provided: Adult Hospital Medicine
== END 2018-05-05 19:24 | disposition home or self-care (01) ==
LOC: ED 04:48 → 2W 04:48

== ENCOUNTER 2023-11-14 00:23 | Observation (INO) ==
[2023-11-14 00:53] LABS: Basophils # (auto) 0.06 K/uL (0.00-0.20); Basophils % (auto) 0.6 %; Eosinophils # (auto) 0.39 K/uL (0.00-0.50); Eosinophils % (auto) 3.6 %; Hematocrit (blood only) 39.1 % (42.0-52.0); Hemoglobin 13.3 g/dl (14.0-18.0); Immature Granulocytes # (auto) 0.04 K/uL (0.01-0.20); Immature Granulocytes % (auto) 0.4 %; Lymphocytes # (auto) 3.68 K/uL (1.20-3.40); Lymphocytes % (auto) 33.9 %; Mean Corpuscular Hemoglobin 30.9 pg (25.0-34.0); Mean Corpuscular Volume 90.9 fL (80.0-100.0); Mean Platelet Volume 10.7 fL (9.4-12.4); Monocytes # (auto) 0.81 K/uL (0.11-0.59); Monocytes % (auto) 7.5 %; Neutrophils # (auto) 5.89 K/uL (1.40-6.50); Platelet Count 278 K/uL (130-400); RDW Coefficient of Variation 13.3 % (11.5-14.5); RDW Standard Deviation 44.5 fL (36.4-46.3); White Blood Count 10.87 K/ul (4.8-10.8)
[2023-11-14 01:09] LABS: Albumin Level 3.8 gm/dl (3.4-5.0); Bilirubin,Total 0.3 mg/dl (0.2-1.0); Calcium 8.5 mg/dl (8.6-10.3); Creatinine Clr Calc Pharmacy 97.4 ml/min; Est GFR (African American) 75.2 ml/min; Est GFR (Non-African American) 64.9 ml/min; Globulin 3.7 gm/dl (2.5-4.0); Total Protein 7.5 gm/dl (6.0-8.3)
[2023-11-14 01:16] LABS: Troponin I High Sensitivity 7.7 pg/ml (0-20)
[2023-11-14] MEDS: ALUMINUM/MAGNESIUM SUSP 30 ML UDC PO STA (01:20)
[2023-11-14] MEDS: SODIUM CHLORIDE 0.9% 1,000 ML IV SCH (01:22)
[2023-11-14] MEDS: NITROGLYCERIN 2% OINTMENT 30GM TUBE EXT ONE (02:09)
[2023-11-14] MEDS: ASPIRIN CHEW 324 MG PO STA (02:10)
--- NOTE | 2023-11-14 03:10 | History & Physical Report ---
Date of Service November 14, 2023 Assessment & Plan (1) Chest pain: Plan: Patient is a 53-year-old male without significant past medical history, currently not taking any medication who comes in with concerning history of unstable angina since 7 PM. -Troponin negative x 1 in the ED. Will repeat troponin at time of admission and every 6 hours. -EKG without any acute changes. GI cocktail which did not help in the ED. -Aspirin 324 mg given in the ED, Nitropaste given which helped symptoms. -Will monitor on telemetry, will get CBC, CMP, hemoglobin A1c, and lipid panel in the a.m. -Nitropaste every 6 hours. -Will keep n.p.o. at time of admission due to waiting to see neck steps on trending troponin. -Will hold off on reaching out to cardiology until troponin is trended. -SUMAYA ordered -Ultimately patient will need new PCP in the area. Anticipate discharge tomorrow (2) Leukocytosis: Plan: -Slight leukocytosis on CBC. -Most likely reactive. Will continue to monitor with daily labs. Plan Fluids: LR at 80 mL an hour, stop after 1 bag Nutrition: N.p.o. Code status: Full code DVT ppx: Holding at this time, should consider prolonged hospital stay Dispo: PCU/telemetry History of Present Illness Chief Complaint: Chest pain rule out Primary Care Provider: NO PCP Patient is a 53-year-old male who does not have significant past medical history who presents to the hospital for chest pain. Patient has been having coming and going of chest pain since 7 PM. States that he was sitting watching TV when he started to have left substernal chest pain that radiates to the back and jaw. No personal history of heart issues in the past though father had a heart attack in his 40s. He currently does not have a PCP and is currently not taking any medications. Does state that he gets slightly worse when he takes a deep breath but does not know much of a change. Some tenderness with palpitation though overall does not change with palpitation. Nitro in the ED did make the pain feel better. Denies any fever, chills, abdominal pain, nausea, recent illness, cough. States that he was in his regular state of health when he started to feel this chest pain sitting watching TV. Allergies Allergy/AdvReac Type Severity Reaction Status Date / Time morphine AdvReac Intermediate NAUSEA/VOMI Verified 11/14/23 01:03 TING Home Medications Medication Instructions Recorded Confirmed Type aspirin 81 mg tablet,delayed 162 mg PO ONCE 11/14/23 11/14/23 History release Past Med/Surg History Problem List (Updated 11/14/23 @ 04:01 by Pino Burnett PA-C) Atypical chest pain (Acute) Leukocytosis Chest pain Encounter for screening colonoscopy MARITZA (acute kidney injury) (Acute) Acute dehydration (Acute) Abdominal pain, vomiting, and diarrhea (Acute) Food poisoning Medical History History of COVID-31 Jan 2019 No acute medical problems Surgical History History of ankle surgery right Family History Mother Diabetes Social History Smoking Status: Never smoker Second Hand Exposure: No; Do You Dip or Chew Tobacco: No; Hx Alcohol Use: Yes Alcohol type: beer, wine and hard liquor Hx Substance Use: No Preferred Language: Cypriot Communication Ability: Effective Road Crew Member Required: No Beliefs That Will Affect Care: None Current Living Situation: Spouse Feels Safe at Home: Yes Assistive Devices: None Review of Systems Review of Systems: All systems reviewed & are unremarkable except as noted in Subjective Physical Exam Physical Exam: Constitutional: well-appearing, no acute distress HEENT: NCAT, no conjunctival injection CV: regular rhythm, no murmur appreciated, extremities well-perfused, no LE edema Resp: CTABL, no wheezes/rales/rhonchi appreciated, no increased work of breathing GI: soft, nondistended, nontender, BS normoactive MSK: no gross deformities appreciated Skin: warm, dry, no rash appreciated Neuro: alert, oriented, no focal neurologic deficit appreciated Results & Data Results & Data Vital Signs (Past 12 Hours) Vital Signs Temp Pulse Pulse Resp BP BP Pulse Ox 11/14/23 02:21 64 16 149/89 H 98 11/14/23 02:19 98 11/14/23 00:52 70 11/14/23 00:24 36.5 C 70 20 180/107 H 96 O2 Del Method 11/14/23 02:21 Room Air 11/14/23 02:19 Room Air 11/14/23 00:52 11/14/23 00:24 Room Air Supervising Physician Co-Signing Physician Notes Attending addendum: I have physically seen this patient, have supervised the medical residents activities, and agree with the H&P unless as otherwise noted. Assessment and Plan: Chest pain/unstable angina- The patient will be admitted to telemetry for serial cardiac enzymes, serial EKG's, cardiac rhythm monitoring and a 2-D echocardiogram with Dopplers. No improvement with GI cocktail Patient did have significant improvement following administration of aspirin and Nitro-Bid 2% topically Strong family history of father having had an AR in his early 40s Patient describes chest pain that was initially left-sided and fleeting at around 7 PM. This chest pain did go away completely, and then returned more strongly, and is happened several times overnight The patient ultimately decided he should come to the emergency department for evaluation, when the pain became more central and substernal, and radiated into his jaw. Continue aspirin 81 mg every morning Continue Nitropaste 1 inch to anterior chest wall every 6 hours Heart rate in the low 60s, unable to add beta-[id number] Initial troponin 7.7 will follow-up pending Check a fasting lipid panel and hemoglobin A1c Will need a stress echocardiogram
--- NOTE | 2023-11-14 03:52 | Emergency Department Note ---
History of Present Illness General Chief complaint: Chest Pain Stated complaint: CHEST PAIN AND TIGHTNESS Time Seen by Provider: 11/14/23 00:28 History of Present Illness Maximum Pain Intensity: 3 This is a 53-year-old male presenting to the emergency department for evaluation of left-sided chest pain and tightness for the past 5 hours. Patient states that his pain sometimes moves but is primarily left-sided. It may radiate into his back at times. He does not have any recent travel history. No personal history of cardiopulmonary disease, however his father had heart problems starting in his 40s. Patient has not taken anything [id number] for symptoms. He rates his discomfort a 3/10. Symptoms do not seem exertional. Home Medications Medication Instructions Recorded Confirmed Type aspirin 81 mg tablet,delayed 162 mg PO ONCE 11/14/23 11/14/23 History release Allergies Allergy/AdvReac Type Severity Reaction Status Date / Time morphine AdvReac Intermediate NAUSEA/VOMI Verified 11/14/23 01:03 TING Past Med/Surg History Problem List (Updated 11/14/23 @ 04:01 by Pino Burnett PA-C) Atypical chest pain (Acute) Leukocytosis Chest pain Encounter for screening colonoscopy MARITZA (acute kidney injury) (Acute) Acute dehydration (Acute) Abdominal pain, vomiting, and diarrhea (Acute) Food poisoning Medical History History of COVID-31 Jan 2019 No acute medical problems Surgical History History of ankle surgery right Family History Mother Diabetes Social History Smoking Status: Never smoker Second Hand Exposure: No; Do You Dip or Chew Tobacco: No; Hx Alcohol Use: Yes Alcohol type: beer, wine and hard liquor Hx Substance Use: No Preferred Language: Kazakh Communication Ability: Effective Extension Work Instructor Required: No Beliefs That Will Affect Care: None Current Living Situation: Spouse Feels Safe at Home: Yes Assistive Devices: None Review of Systems A total of 10 systems reviewed and were otherwise negative Physical Exam Vital Signs Vital Signs - 24 hr 11/14/23 00:24 11/14/23 00:52 11/14/23 02:19 Temperature 36.5 C Temperature Source Temporal Artery Scan Pulse Rate 70 70 Pulse Rate [Right Apical] Pulse Rhythm [Right Apical] Pulse Strength [Right Apical] Respiratory Rate 20 Respiratory Effort / Characteristics Non-Labored Spontaneous Respiratory Depth Normal Blood Pressure 180/107 H Blood Pressure [Right Arm] Blood Pressure Mean 131 Blood Pressure Mean [Right Arm] Pulse Oximetry 96 98 Oxygen Delivery Method Room Air Room Air Sepsis Recent Fever Within 48 Hours No Sepsis New/Unexplained Change in Mental Status N/A Sepsis Action Taken by Nursing No Action Required 11/14/23 02:21 Temperature Temperature Source Pulse Rate Pulse Rate [Right Apical] 64 Pulse Rhythm [Right Apical] Regular Pulse Strength [Right Apical] Normal Respiratory Rate 16 Respiratory Effort / Characteristics Non-Labored Spontaneous Respiratory Depth Normal Blood Pressure Blood Pressure [Right Arm] 149/89 H Blood Pressure Mean Blood Pressure Mean [Right Arm] 109 Pulse Oximetry 98 Oxygen Delivery Method Room Air Sepsis Recent Fever Within 48 Hours Sepsis New/Unexplained Change in Mental Status Sepsis Action Taken by Nursing VITALS: Vitals are noted on the nurse's note and reviewed by myself. Vital signs stable. GENERAL: Well-developed, well-nourished, black male, who is in no acute distress and resting comfortably. Patient is cooperative with the examination. HEAD: Normocephalic atraumatic. NECK: Supple without nuchal rigidity. No lymphadenopathy. No thyromegaly. Cervical spine is nontender. HEART: Regular rate and rhythm without murmurs gallops or rubs. LUNGS: Clear to auscultation bilaterally without wheezes, rales or rhonchi. No retractions or accessory muscle use. ABDOMEN: Positive normal bowel sounds x 4. Soft, nontender, without masses or organomegaly. Course Administered Medications Discontinued Medications Al Hydrox/Mg Hydrox/Simethicone (Aluminum/Magnesium Susp 30 Ml Udc) 30 ml PO NOW STA Stop: 11/14/23 01:18 Last Admin: 11/14/23 01:20 Dose: 30 ml Documented By: CINDI Aspirin (Aspirin Chew 324 Mg) 324 mg PO NOW STA Stop: 11/14/23 02:05 Last Admin: 11/14/23 02:10 Dose: 324 mg Documented By: ABEL Sodium Chloride (Nss) 1,000 mls @ 999 mls/hr IV .Q1H1M JULIAN Stop: 11/14/23 02:30 Last Infusion: 11/14/23 02:46 Dose: Infused Documented By: Admin: 11/14/23 01:22 Dose: 999 mls/hr Documented By: CINDI Nitroglycerin (Nitroglycerin 2% Ointment 30gm Tube) 1 inch EXT NOW ONE Stop: 11/14/23 02:05 Last Admin: 11/14/23 02:09 Dose: 1 inch Documented By: ABEL Medical Decision Making Differential Diagnosis Differential diagnosis includes, but is not limited to: Myocardial infarction, dysrhythmia, pericarditis, pneumothorax, aortic aneurysm/dissection, DVT/PE, anxiety, GERD, PUD, electrolyte imbalance, thyroid disorder, pneumonia, bronchitis, pancreatitis, and others Laboratory Data 11/14/23 00:40 11/14/23 00:40 Lab Results 11/14/23 Range/Units 00:40 WBC 10.87 H (4.8-10.8) K/ul RBC 4.30 L (4.70-6.10) M/uL Hgb 13.3 L (14.0-18.0) g/dl Hct 39.1 L (42.0-52.0) % MCV 90.9 (80.0-100.0) fL MCH 30.9 (25.0-34.0) pg MCHC 34.0 (32.0-36.0) g/dL RDW Std Deviation 44.5 (36.4-46.3) fL RDW Coeff of Ashley 13.3 (11.5-14.5) % Plt Count 278 (130-400) K/uL MPV 10.7 (9.4-12.4) fL Immature Gran % (Auto) 0.4 % Neut % (Auto) 54.0 % Lymph % (Auto) 33.9 % Rolette % (Auto) 7.5 % Eos % (Auto) 3.6 % Baso % (Auto) 0.6 % Neut # (Auto) 5.89 (1.40-6.50) K/uL Lymph # (Auto) 3.68 H (1.20-3.40) K/uL Rolette # (Auto) 0.81 H (0.11-0.59) K/uL Eos # (Auto) 0.39 (0.00-0.50) K/uL Baso # (Auto) 0.06 (0.00-0.20) K/uL Immature Gran # (Auto) 0.04 (0.01-0.20) K/uL Sodium 137 (136-145) mmol/L Potassium 4.0 (3.5-5.1) mmol/L Chloride 103 (98-107) mmol/L Carbon Dioxide 29 (21-32) mmol/L Anion Gap 5 (3-11) BUN 15 (6-23) mg/dl Creatinine 1.25 (0.6-1.4) mg/dl Est Cr Clr Drug Dosing 97.4 ml/min Est GFR ( Amer) 75.2 ml/min Est GFR (Non-Af Amer) 64.9 ml/min BUN/Creatinine Ratio 12.0 (10-20) Glucose 135 H (70-99(Fasting)) mg/dl Calcium 8.5 L (8.6-10.3) mg/dl Total Bilirubin 0.3 (0.2-1.0) mg/dl AST 19 (13-39) U/L ALT 19 (7-52) U/L Alkaline Phosphatase 57 (34-104) U/L Troponin I High Sens 7.7 (0-20) pg/ml Total Protein 7.5 (6.0-8.3) gm/dl Albumin 3.8 (3.4-5.0) gm/dl Globulin 3.7 (2.5-4.0) gm/dl Albumin/Globulin Ratio 1.0 (0.9-2) Lipase 41 (11-82) U/L MDM Narrative Physical exam and history were performed. Nursing notes, EMR, and Medication List were personally reviewed. No social concerns were identified as barriers to patients care. Patient appears to have chest pain symptoms bringing him to the ER. He does not appear toxic on arrival. EKG was performed and was normal sinus rhythm. IV access was established and labs were obtained. An order was placed for continuous cardiac monitoring. The monitor shows a rate of 82 with normal sinus rhythm. Patient's blood work is as above and was reviewed. He does not have a significantly elevated white blood cell count, gross anemia, bandemia, or significant electrolyte imbalance. Transaminases not diagnostic. Troponin is negative. Patient continues to have discomfort and was given a GI cocktail which did not help his pain. He was given aspirin and Nitropaste, and reports significant improvement of pain after this. Overall the patient does not appear well for discharge home. He has a concerning family history, and symptoms seem improved with aspirin and Nitropaste. Case was discussed with the on-call hospitalist, Dr. Powell, who agreed to evaluate the patient here in the ER. Please see their dictation for further patient course, plan, disposition. The chart was completed utilizing [employer] Speech Voice Recognition Software. Grammatical errors, random word insertions, pronoun errors, and incomplete sentences are an occasional consequence of this system due to software limitations, ambient noise, and hardware issues. Any formal questions or concerns about the content, text, or information contained within the body of this dictation should be directly addressed to the provider for clarification. Impression & Plan Atypical chest pain Discharge Plan Visit Data Chief Complaint: Chest Pain Stated Complaint: CHEST PAIN AND TIGHTNESS ED Provider: Heather Larkin ED Midlevel Provider: iPno Burnett Discharge Problem: Atypical chest pain Forms Stand Alone Forms: [facility] HEROZ Prescriptions Prescriptions: No Action aspirin 81 mg Tablet,Delayed Release (Dr/Ec) 162 mg PO ONCE Referrals Referrals: PCP,NO [Primary Care Provider] -
[2023-11-14] MEDS ORDERED: NITROGLYCERIN 2% OINTMENT 30GM TUBE EXT SCH (06:04)
[2023-11-14] MEDS ORDERED: ONDANSETRON INJ 2 MG/ML 2 ML VIAL IV PRN (06:04)
[2023-11-14] MEDS: LACTATED RINGER'S 1,000 ML IV SCH (06:35)
[2023-11-14] MEDS: NITROGLYCERIN 2% OINTMENT 30GM TUBE EXT STA (06:43)
[2023-11-14] MEDS: ACETAMINOPHEN 325 MG TAB PO PRN (06:45)
[2023-11-14 07:09] LABS: Basophils # (auto) 0.03 K/uL (0.00-0.20); Basophils % (auto) 0.3 %; Eosinophils # (auto) 0.36 K/uL (0.00-0.50); Eosinophils % (auto) 4.2 %; Hematocrit (blood only) 39.3 % (42.0-52.0); Immature Granulocytes # (auto) 0.03 K/uL (0.01-0.20); Immature Granulocytes % (auto) 0.3 %; Lymphocytes # (auto) 2.78 K/uL (1.20-3.40); Lymphocytes % (auto) 32.3 %; Mean Corpuscular Hemoglobin 30.1 pg (25.0-34.0); Mean Corpuscular Hgb Conc 33.1 g/dL (32.0-36.0); Mean Platelet Volume 10.6 fL (9.4-12.4); Monocytes # (auto) 0.61 K/uL (0.11-0.59); Monocytes % (auto) 7.1 %; Neutrophils % (auto) 55.8 %; Platelet Count 258 K/uL (130-400); RDW Coefficient of Variation 13.2 % (11.5-14.5); RDW Standard Deviation 43.7 fL (36.4-46.3); Red Blood Count 4.32 M/uL (4.70-6.10); White Blood Count 8.61 K/ul (4.8-10.8)
--- NOTE | 2023-11-14 07:11 | XRay Report ---
XR chest 1V portable CLINICAL HISTORY: Chest pain, nonspecific COMPARISON STUDY: Chest radiograph May 19, 2011. FINDINGS: Lung volumes are normal. Lungs are clear. There is no pneumothorax or pleural effusion. The re is moderate enlargement of the cardiac silhouette. Mediastinal contours are normal. There is no ev idence for pulmonary edema. IMPRESSION: 1. No acute cardiopulmonary findings. 2. Moderate enlargement of the cardiac silhouette. ACT 112: Negative or not required by law. Electronically signed by: Giuliano Daniels M.D. 11/14/2023 7:10 AM
[2023-11-14 07:21] LABS: Anion Gap 6 (3-11); BUN Creatinine Ratio 14.1 (10-20); Blood Urea Nitrogen 14 mg/dl (6-23); Calcium 8.4 mg/dl (8.6-10.3); Carbon Dioxide 26 mmol/L (21-32); Chloride 105 mmol/L (98-107); Chol HDL Ratio 6.7 (0-5); Cholesterol 201 mg/dl (0-200); Est GFR (African American) 99.7 ml/min; Glucose 132 mg/dl (70-99(Fasting)); HDL Cholesterol 30 mg/dl; LDL Cholesterol Calculated 140 mg/dl; Sodium 137 mmol/L (136-145); Triglycerides 154 mg/dl (0-150); VLDL Cholesterol 31 mg/dl (0-30)
[2023-11-14 07:26] LABS: Troponin I High Sensitivity 6.6 pg/ml (0-20)
--- NOTE | 2023-11-14 07:35 | Electrocardiogram Report ---
Test Reason : Blood Pressure : */* mmHG Vent. Rate : 72 BPM Atrial Rate : 72 BPM P-R Int : 186 ms QRS Dur : 92 ms QT Int : 518 ms P-R-T Axes : 35 -10 70 degrees QTcB Int : 567 ms Normal sinus rhythm Incomplete right bundle branch block Nonspecific ST abnormality Abnormal ECG When compared with ECG of 30-Mar-2017 16:35, Incomplete right bundle branch block is now Present QT has lengthened Confirmed by Aristides Dominique ([id number]) on 11/14/2023 7:35:03 AM Referred By: REFERRED SELF Confirmed By: Aristides Dominique
[2023-11-14 09:11] LABS: Estimated Average Glucose 160 mg/dl; Hemoglobin A1C 7.2 % (4.5-5.6)
[2023-11-14] MEDS: NITROGLYCERIN 2% OINTMENT 30GM TUBE EXT SCH (11:33)
[2023-11-14] MEDS: ATORVASTATIN 40 MG TAB PO SCH (11:33)
[2023-11-14 11:52] LABS: D Dimer 460 ug/L FEU (0-500)
--- NOTE | 2023-11-14 11:59 | XCELERA ---
[id number]
--- NOTE | 2023-11-14 14:34 | Electrocardiogram Report ---
Test Reason : Blood Pressure : */* mmHG Vent. Rate : 67 BPM Atrial Rate : 67 BPM P-R Int : 194 ms QRS Dur : 90 ms QT Int : 388 ms P-R-T Axes : 19 -13 148 degrees QTcB Int : 409 ms Normal sinus rhythm Incomplete right bundle branch block Nonspecific ST abnormality Abnormal ECG When compared with ECG of 14-Nov-2023 00:30, QT has shortened Confirmed by Aristides Dominique ([id number]) on 11/14/2023 2:33:35 PM Referred By: REFERRED SELF Confirmed By: Aristides Dominique
[2023-11-14 14:54] VITALS: BP 128/82; RESP 18; TEMP 97.7; O2SAT 98
--- NOTE | 2023-11-14 15:17 | Cardiology Consultation ---
Date of Consultation November 14, 2023 Assessment & Plan (1) Chest pain: (2) Hyperlipidemia: (3) Left ventricular hypertrophy: Plan 1. Chest pain: He is a very reliable historian and seems to have relayed an accurate time course for his symptoms last evening. I think we can be confident that he had at least 2 hours if not a longer period of constant symptoms without elevation in his cardiac biomarkers. This would suggest a nonischemic etiology for his symptoms. Possibly musculoskeletal, possibly gastrointestinal. Not likely related to thromboembolic disease given his normal D-dimer as well. 2. Hyperlipidemia: Given his risk factors of coronary disease including newly diagnosed diabetes mellitus he would likely benefit from aggressive lipid control. A trial of dietary modification and diabetes therapy can be considered prior to introduction of medical treatment. 3. Left ventricular hypertrophy: Perhaps related to longstanding hypertension. No diagnosis previously not currently on medications. However, we can monitor his blood pressure as an outpatient. He has a large individual and this may be more of a normal variant. Not to the degree where I would expect this to be an infiltrative process and similar to an echocardiogram obtained several years ago. 4. Aortic root dilation: Noted on his echocardiogram. Again, he is a large individual and index this may be relatively normal. We could obtain a CT scan as an outpatient to get a more accurate reading in another year. 5. Abnormal EKG: He does have some T wave inversions diffusely on his EKG. However, this appears unchanged from prior. Normal echocardiogram and prior exercise echocardiogram. History of Present Illness Reason for Consultation: Chest pain Requesting Physician: Cachorro Attending Physician: Josi Ivory MD History of Present Illness The patient is a 53-year-old gentleman without a known history of cardiac disease who presented to the emergency room with symptoms of chest discomfort. The patient states that yesterday evening he began to experience intermittent symptoms of chest pressure. This was fairly central in location and described more as a pressure rather than a true pain. The symptoms would last for 10 to 15 minutes and then resolved. However, around 9 PM he began to have a more constant sensation of chest discomfort that he also described as pressure. This eventually involved some jaw and back discomfort as well. This was not positional in nature. It was not pleuritic. It was not relieved with any change in position. The patient did take some aspirin at home without any effect. He did not have associated breathing difficulty or dizziness. His symptoms persisted and he eventually sought an evaluation in our emergency room. The GI cocktail did not produce any relief and nitroglycerin produced partial relief prior to eventual resolution of his symptoms sometimes later. He has been an active individual. Recently he began an exercise program. He states that he exercises approximately 1 hour/day. He does a variety of cardiovascular exercises including stationary bike, treadmill and elliptical machine. He did not report symptoms associated with this activity. Specifically no similar symptoms of chest discomfort. He has not noticed similar pains in the past. He generally does not have other symptoms such as dizziness, palpitations or breathing difficulty. He did undergo stress echocard iography several years ago for an employment physical. That test did not demonstrate ischemia. Currently feeling well without symptoms. Has been somewhat ambulatory around the emergency room without recurrent symptoms. Allergies Allergy/AdvReac Type Severity Reaction Status Date / Time morphine AdvReac Intermediate NAUSEA/VOMI Verified 11/14/23 01:03 TING Home Medications Medication Instructions Recorded Confirmed Type aspirin 81 mg tablet,delayed 162 mg PO ONCE 11/14/23 11/14/23 History release Patient History Medical History History of COVID-31 Jan 2019 No acute medical problems Surgical History History of ankle surgery right Family History Mother Diabetes Social History Smoking Status: Never smoker Second Hand Exposure: No; Do You Dip or Chew Tobacco: No; Hx Alcohol Use: No Hx Substance Use: No Preferred Language: Italian Communication Ability: Effective Patrol Officer Required: No Beliefs That Will Affect Care: None Current Living Situation: Spouse Other Information That Helps Us Care for You: No Feels Safe at Home: Yes Safety Concerns: Feels Safe At This Time Assistive Devices: None Review of Systems Review of Systems: Per HPI. He reports a 17 pound weight loss over the past few weeks due to exercise. Physical Exam Physical Exam: The patient is alert and oriented. Mood and affect appeared normal. He answered all questions appropriately. Obese HEENT: Pupils are equal and reactive to light and accommodation. Extraocular movements are intact. The sclerae are anicteric. Neuro: Cranial nerves intact Neck:He has palpable carotid pulses bilaterally without bruits on auscultation. There is no evidence of jugular venous distention. The thyroid is not enlarged. Lungs: Clear to auscultation bilaterally. He has good air movement without use of accessory muscles. No rales wheezes or rhonchi. Cardiac: Heart demonstrates a regular rate and rhythm. Normal S1 and S2. No murmurs on examination. Pulses: The patient has palpable radial pulses bilaterally that are equal in intensity Extremities: There was no evidence of hypoperfusion. There is no cyanosis or clubbing. There is no edema. Skin: I did not appreciate any rashes on examination today. Results & Data Vital Signs (Past 12 Hours) Vital Signs Temp Pulse Pulse Resp BP Pulse Ox Pulse Ox 11/14/23 14:30 36.5 C 85 18 128/82 98 11/14/23 10:46 36.4 C L 72 20 117/80 96 11/14/23 07:06 82 11/14/23 06:39 95 11/14/23 06:38 71 18 151/85 H 98 11/14/23 05:39 63 18 139/85 98 O2 Del Method O2 Del Method 11/14/23 14:30 Room Air 11/14/23 10:46 Room Air 11/14/23 07:06 11/14/23 06:39 Room Air 11/14/23 06:38 Room Air 11/14/23 05:39 Room Air Laboratory Results Abnormal Lab Results 11/14/23 11/14/23 11/14/23 00:40 03:36 06:40 WBC 10.87 H 8.61 RBC 4.30 L 4.32 L Hgb 13.3 L 13.0 L Hct 39.1 L 39.3 L MCV 90.9 91.0 MCH 30.9 30.1 MCHC 34.0 33.1 RDW Std Deviation 44.5 43.7 RDW Coeff of Ashley 13.3 13.2 Plt Count 278 258 MPV 10.7 10.6 Immature Gran % (Auto) 0.4 0.3 Neut % (Auto) 54.0 55.8 Lymph % (Auto) 33.9 32.3 [place] % (Auto) 7.5 7.1 Eos % (Auto) 3.6 4.2 Baso % (Auto) 0.6 0.3 Neut # (Auto) 5.89 4.80 Lymph # (Auto) 3.68 H 2.78 [place] # (Auto) 0.81 H 0.61 H Eos # (Auto) 0.39 0.36 Baso # (Auto) 0.06 0.03 Immature Gran # (Auto) 0.04 0.03 D-Dimer Sodium 137 137 Potassium 4.0 TNP Chloride 103 105 Carbon Dioxide 29 26 Anion Gap 5 6 BUN 15 14 Creatinine 1.25 0.99 Est Cr Clr Drug Dosing 97.4 123.0 Est GFR ( Amer) 75.2 99.7 Est GFR (Non-Af Amer) 64.9 86.0 BUN/Creatinine Ratio 12.0 14.1 Glucose 135 H 132 H Estimat Average Glucose 160 Hemoglobin A1c 7.2 H Calcium 8.5 L 8.4 L Total Bilirubin 0.3 AST 19 ALT 19 Alkaline Phosphatase 57 Troponin I High Sens 7.7 6.8 6.6 Total Protein 7.5 Albumin 3.8 Globulin 3.7 Albumin/Globulin Ratio 1.0 Triglycerides 154 H Cholesterol 201 H LDL Cholesterol, Calc 140 VLDL Cholesterol, Calc 31 H HDL Cholesterol 30 Cholesterol/HDL Ratio 6.7 H Lipase 41 11/14/23 11/14/23 08:02 11:16 WBC RBC Hgb Hct MCV MCH MCHC RDW Std Deviation RDW Coeff of Ashley Plt Count MPV Immature Gran % (Auto) Neut % (Auto) Lymph % (Auto) [place] % (Auto) Eos % (Auto) Baso % (Auto) Neut # (Auto) Lymph # (Auto) [place] # (Auto) Eos # (Auto) Baso # (Auto) Immature Gran # (Auto) D-Dimer 460 Sodium Potassium 3.8 Chloride Carbon Dioxide Anion Gap BUN Creatinine Est Cr Clr Drug Dosing Est GFR ( Amer) Est GFR (Non-Af Amer) BUN/Creatinine Ratio Glucose Estimat Average Glucose Hemoglobin A1c Calcium Total Bilirubin AST ALT Alkaline Phosphatase Troponin I High Sens 5.8 Total Protein Albumin Globulin Albumin/Globulin Ratio Triglycerides Cholesterol LDL Cholesterol, Calc VLDL Cholesterol, Calc HDL Cholesterol Cholesterol/HDL Ratio Lipase Diagnostic Findings Chest x-ray did not demonstrate any acute cardiopulmonary findings. C ardiomegaly was noted. Echocardiogram 11/14/2023: Normal LV systolic function with ejection fraction 60 to 65%. Mild LVH. Stage I diastolic dysfunction. Mild aortic root dilation. ECG Additional Comments: EKG demonstrated normal sinus rhythm with incomplete right bundle branch block and some T wave inversions. PG Care Time/CCT Total # of Minutes Spent Total Time Spent with Patient: Total time spent is greater than 50% in coordination of care (as documented) at patient's floor/unit and/or counseling patient: Coding Level of Care Code 41309 IN/OBS CONSULT LVL 4,60M Diagnoses Chest pain R07.9 Hyperlipidemia E78.5 Left ventricular hypertrophy I51.7
[2023-11-14 16:04] VITALS: PULSE 85
--- NOTE | 2023-11-14 16:05 | Discharge Summary ---
Discharge Summary Date of Service November 14, 2023 Principal Dx & Hospital Course #1 = Principal Diagnosis (1) Chest pain: Patient is a 53-year-old male without significant PMH who presents with chest pain that was coming and going that started in the left side of the chest and moved into the substernal region that felt like a pressure sensation. It radiated somewhat through to his back and then up into both sides of his jaw. Initially it was coming and going at rest and did not worsen with any exertion, lasted 15 to 20 minutes and would go away on its own without intervention. It then came on and stayed on for at least a couple of hours continuously prior to coming to the ER. He took 2 baby aspirin at home 1 hour before arrival with no relief. In the ER, he was given a GI cocktail which did not provide relief. He was then given nitroglycerin which took away his pain. He remained chest pain- free throughout the rest of the day of admission. His blood pressures initially were quite elevated but then improved D-dimer was negative Chest x-ray and showed cardiomegaly but otherwise normal His ECG did show some lateral T wave inversions which appear to be chronic, as well as an incomplete right bundle branch block. Serial troponins x 4 were negative and echocardiogram showed mild LVH, mildly dilated aortic root, and preserved EF, no wall motion abnormalities Telemetry revealed a normal sinus rhythm throughout his stay Lipid panel was elevated with total cholesterol 201, LDL 140, HDL low at 30 Hemoglobin A1c was elevated at 7.0% which is a new diagnosis of diabetes mellitus type 2 for him While chest pain did not seem like unstable angina, his serial troponins were negative and after 2 hours of continuous symptoms, would expect some elevation of troponin. Likely chest pain was noncardiac in origin. Perhaps esophageal spasm as it was relieved with nitroglycerin? He was started on aspirin 81 mg daily, atorvastatin 40 mg daily, and was seen in consultation by the second shift supervisor Given his multiple risk factors for coronary artery disease i.e. father with NE in his 40s, diabetes mellitus, possible hypertension, and to a lesser degree with hyperlipidemia, obesity, he will need outpatient cardiac stress test. This will be arranged by the second shift supervisor as an outpatient Patient is stable for discharged home with precautions to return if symptoms return. He will go home on aspirin 81 mg daily, atorvastatin 40 mg daily, m etformin XR 500 mg p.o. daily Our nurse navigator will help arrange follow-up with a new primary care physician at the [facility] office in [place] (2) Diabetes mellitus type 2 in obese: A new diagnosis for him with a hemoglobin A1c of 7.0% He needs follow-up/get established with a PCP Start metformin XR 500 mg p.o. daily in the meantime He does not need to check his glucose regularly at home Advised diabetic diet and continuing his new exercise and weight loss program He would be a good candidate for Mounjaro or [id number] with PCP (3) Hyperlipidemia: As noted above, starting atorvastatin Needs LFTs and repeat lipid panel in 4 to 6 weeks (4) Aortic root dilation: Mild and may be related to his large size/normal variant for him Cardiology recommends obtaining a CT scan of the chest in 1 year (5) Leukocytosis: Patient presented with a mild leukocytosis of 10K on admission which is likely related to the stress of chest pain This resolved to a normal WBC count spontaneously. There is no evidence of infection (6) Left ventricular hypertrophy: Mild and noted on echocardiogram Needs ongoing evaluation by PCP for hypertension (7) Obesity: BMI elevated at 48.5. He has recently lost 15 pounds and is started exercising over the last 2 months Encouraged him to continue exercise program and weight loss Follow-up with PCP as he would be a good candidate for Mounjaro or Ozempic given his diagnosis of diabetes Plan DVT prophylaxis-none provided as it was a very short hospital stay Disposition-stable for discharge to home Notes For Next Care Provider Needs outpatient stress test-this is being arranged by cardiology Needs to get established with PCP-this is being arranged by nurse navigator with [facility] hospitalist group Check lipids and LFTs in 4 to [address] chest to assess reassess aortic root dilation in 1 year around 11/2024 Consider starting Mounjaro or Ozempic as an outpatient for obesity and diabetes Medication Changes From Visit Added aspirin 81 mg p.o. daily Added atorvastatin 40 mg p.o. daily Added metformin XR 500 mg p.o. daily Admission HPI Per Admitting Provider Patient is a 53-year-old male who does not have significant past medical history who presents to the hospital for chest pain. Patient has been having coming and going of chest pain since 7 PM. States that he was sitting watching TV when he started to have left substernal chest pain that radiates to the back and jaw. No personal history of heart issues in the past though father had a heart attack in his 40s. He currently does not have a PCP and is currently not taking any medications. Does state that he gets slightly worse when he takes a deep breath but does not know much of a change. Some tenderness with palpitation though overall does not change with palpitation. Nitro in the ED did make the pain feel better. Denies any fever, chills, abdominal pain, nausea, recent illness, cough. States that he was in his regular state of health when he started to feel this chest pain sitting watching TV. Discharge Exam Constitutional WD/WN, vitals as above + obese Eyes + anicteric sclerae ENMT external ear and nose normal, oropharynx normal Neck trachea midline, no thyromegaly Respiratory normal respiratory effort, lungs clear to auscultation Cardiovascular RRR, no murmur, no edema Vessels: no carotid bruit Chest (Breasts) Chest: normal inspection of chest Gastrointestinal (Abdomen) normal bowel sounds, soft, nontender, no hepatosplenomegaly Musculoskeletal Extremities: extremities normal to inspection; no cyanosis and no clubbing Skin no rashes, warm and dry Neurologic moves all extremities and awake; no focal motor deficits Psychiatric A+Ox3, euthymic affect Lymphatic no lymphedema Discharge Plan Discharge Items Patient Disposition: Home - Self-Care Reason For Visit: CHEST PAIN RULE OUT Discharge Diagnosis: Chest pain-likely noncardiac Diabetes mellitus type 2 Hyperlipidemia Activity: Resume your previous activity Non-emergency contact: Primary Care Provider and Creative Intern Call non-emergency contact if: you have any medication questions, your symptoms worsen, your pain is worsening and your pain is unusual for you Follow-up/Referrals: Aristides Dominique MD [Physician] - (Dr. Dominique's office should be contacting you with your appointment date and time for your cardiac stress test.) PCP,NO [Primary Care Provider] - (The [facility] nurse navigator will arrange for you to have a new primary care physician at the [facility] office. She will let you know the appointment date and time.) Diet: Carb Consistent or DM2 and Heart Healthy Addtl Attending Provider Instructions: You were admitted overnight to the hospital for chest pain to have a workup for heart attack. You did not have a heart attack but you do have multiple risk factors for coronary artery disease. Your cholesterol is elevated, you were found to have a new diagnosis of diabetes, and you have a family history of heart disease in an immediate family member. It is recommended that you undergo a cardiac stress test as an outpatient. The second shift supervisor will order and arrange this for you and you should hear from his office with the appointment date and time in the near future. If you have not heard from his office, please contact them at the number listed in these instructions. You will be started on a baby aspirin a day and a cholesterol medication called atorvastatin. You will also be started on a medication called metformin for diabetes. Please continue to work on weight loss and increasing your exercise level as you have been doing lately. Your new primary care physician can certainly take care of all of these medical issues in the future once you get established with them. It is not clear exactly what caused the symptoms. It could have been related to either a musculoskeletal source or a gastrointestinal source. If you have a return of chest pain or any other unusual symptoms, please return to the hospital right away. Pending Studies at Discharge: No Stand-Alone Forms: My [facility] Medications and DC Order Prescriptions: New atorvastatin 40 mg Tablet 40 mg PO QAM Qty: 30 0RF metformin 500 mg tablet extended release 24 hr 500 mg PO DAILY Qty: 30 0RF Changed aspirin 81 mg Tablet,Delayed Release (Dr/Ec) 81 mg PO DAILY 90 Days Qty: 90 0RF Discharge Orders: Discharge Order (Routine); Ordered 11/14/23 Ordered By: Josi Connor/Other Patient Handouts: Diabetes and Heart Disease, Diabetes Food Tips Ch Admission Data Admit Date/Time: 11/14/23 03:41 Attending Provider: Josi Ivory Admit Provider: Fausto Peng Primary Care Provider: PCP,NO Other Providers: Quirino Powell; Aristides Dominique Hospital Stay Data Consultations 11/14/23 02:59 ED Decision to Admit Stat 11/14/23 08:43 Consult Cardiology Routine Pending Results Patient Have Any Pending Studies at Discharge: No Discharge Instructions Given to Patient (Per Discharging Provider) You were admitted overnight to the hospital for chest pain to have a workup for heart attack. You did not have a heart attack but you do have multiple risk factors for coronary artery disease. Your cholesterol is elevated, you were found to have a new diagnosis of diabetes, and you have a family history of heart disease in an immediate family member. It is recommended that you undergo a cardiac stress test as an outpatient. The second shift supervisor will order and arrange this for you and you should hear from his office with the appointment date and time in the near future. If you have not heard from his office, please contact them at the number listed in these instructions. You will be started on a baby aspirin a day and a cholesterol medication called atorvastatin. You will also be started on a medication called metformin for diabetes. Please continue to work on weight loss and increasing your exercise level as you have been doing lately. Your new primary care physician can certainly take care of all of these medical issues in the future once you get established with them. It is not clear exactly what caused the symptoms. It could have been related to either a musculoskeletal source or a gastrointestinal source. If you have a return of chest pain or any other unusual symptoms, please return to the hospital right away. Total Time Total Time Spent Total Time Spent (In Minutes): 40 minutes Total Time Includes: Examination of the Patient, Discharge Planning, Medication Reconciliation and Communication With Other Providers (Cardiology) Coding Level of Care Code 06693 INP/OBS DISCH >30 MIN Diagnoses Chest pain R07.9 Diabetes mellitus type 2 in obese E11.69; E66.9 Hyperlipidemia E78.5 Aortic root dilation I77.810 Leukocytosis D72.829 Left ventricular hypertrophy I51.7 Obesity E66.9
[2023-11-15] MEDS ORDERED: ASPIRIN 81 MG CHEW PO SCH (09:00)
== END 2023-11-14 16:31 | disposition home or self-care (01) ==
LOC: EDINP 00:23 → ED 00:23 → SUATTDRO 03:41 → 2S 06:05